=== PATIENT | male | born 1960 | race Caucasian/White ===

== ENCOUNTER 2016-08-01 09:18 | Outpatient (CLI) | payer MEDICARE | END 2016-08-01 09:19 | disposition home or self-care (01) | DX: E03.9 Hypothyroidism, unspecified (principal); R93.8 Abnormal findings on diagnostic imaging of other specified body structures ==

== ENCOUNTER 2016-08-02 10:36 | Outpatient (CLI) | payer MEDICARE | END 2016-08-02 10:37 | disposition home or self-care (01) | DX: R73.01 Impaired fasting glucose (principal) ==

== ENCOUNTER 2016-10-31 08:27 | Outpatient (CLI) | payer MEDICARE | END 2016-10-31 08:28 | disposition home or self-care (01) | DX: D72.829 Elevated white blood cell count, unspecified (principal); E03.9 Hypothyroidism, unspecified; R73.01 Impaired fasting glucose ==

== ENCOUNTER 2017-02-05 08:04 | Outpatient (CLI) | payer MEDICARE ==
--- NOTE | 2017-02-05 17:19 | Ultrasound Report ---
THYROID ULTRASOUND: 02/05/2017 CLINICAL INDICATION: Hypothyroidism. COMPARISON: 08/01/2016 TECHNIQUE: Real-time scanning was performed with uniforms sales representative static images obtained. The right lobe measures 5.1 x 2.4 x 2.4 cm, and the left lobe measures 5.8 x 2.1 x 2.1 cm. The isthm us measures 6 mm. Both lobes demonstrate diffuse heterogeneity of echotexture. In the central porti on of the right lobe, a 1.3 x 0.5 x 0.6 cm hyperechoic avascular nodule is again noted. No discrete nodule is seen in the left lobe. IMPRESSION: STABLE HYPERECHOIC NODULE IN THE RIGHT LOBE OF THE THYROID. NO NEW NODULE IS SEEN. JOB #: [id number] EXT JOB #:[id number]
== END 2017-02-05 08:05 | disposition home or self-care (01) ==
LOC: DI 08:04
PROVIDERS: ATTEND Nurse Practitioner Family
DX: E04.1 Nontoxic single thyroid nodule (principal); E03.9 Hypothyroidism, unspecified
CPT/HCPCS: 76536

== ENCOUNTER 2017-12-24 09:06 | Outpatient (CLI) | payer MEDICARE ==
[2017-12-24 09:38] LABS: BASOPHILS # (AUTO) 0.1 10^3/uL (0.0-0.1); BASOPHILS % (AUTO) 1.2 %; EOSINOPHILS # (AUTO) 0.2 10^3/uL (0.0-0.7); EOSINOPHILS % (AUTO) 2.1 %; HGB - HEMOGLOBIN 17.2 g/dL (14.0-18.0); LYMPHOCYTES # (AUTO) 2.4 10^3/uL (1.5-3.5); LYMPHOCYTES % (AUTO) 26.2 %; MEAN CORPUSCULAR HEMOGLOBIN 32.1 pg (27.0-31.0); MEAN CORPUSCULAR HGB CONC 34.3 g/dL (32.0-36.0); MEAN CORPUSCULAR VOLUME 93.5 fL (80.0-94.0); MEAN PLATELET VOLUME 7.2 fL (7.4-11.4); MONOCYTES # (AUTO) 0.8 10^3/uL (0.0-1.0); MONOCYTES % (AUTO) 8.3 %; NEUTROPHILS # (AUTO) 5.7 10^3/uL (1.5-6.6); NEUTROPHILS % (AUTO) 62.2 %; PLT - PLATELET COUNT 282 10^3/uL (130-450); RED BLOOD COUNT 5.38 10^6/uL (4.70-6.10); RED CELL DISTRIBUTION WIDTH 12.6 % (12.0-15.0); WHITE BLOOD COUNT 9.1 x10^3/uL (4.8-10.8)
[2017-12-24 09:56] LABS: ALBUMIN/GLOBULIN RATIO 1.1 (1.0-2.2); ALKALINE PHOSPHATASE 83 IU/L (42-121); ALT ALANINE AMINOTRANSFERASE 28 IU/L (10-60); AST ASPARTATE AMINOTRANSFERASE 22 IU/L (10-42); BUN - BLOOD UREA NITROGEN 10 mg/dL (6-20); CALCIUM 8.9 mg/dL (8.5-10.3); CARBON DIOXIDE - CO2 26 mmol/L (21-32); CHLORIDE 100 mmol/L (101-111); CHOL/HDL RATIO 4.8 (<5.0); CHOLESTEROL 135 mg/dL; CREATININE 1.1 mg/dL (0.6-1.2); GFR - MDRD 69 (>89); GLUCOSE 111 mg/dL (70-100); HDL CHOLESTEROL 28 mg/dL; LDL CHOLESTEROL,CALCULATED 84 mg/dL; SODIUM 134 mmol/L (135-145); TOTAL PROTEIN 7.6 g/dL (6.7-8.2); VLDL CHOLESTEROL 23 mg/dL
== END 2017-12-24 09:07 | disposition home or self-care (01) ==
LOC: LAB 09:06
PROVIDERS: ATTEND Nurse Practitioner Family
DX: E03.9 Hypothyroidism, unspecified (principal); R03.0 Elevated blood-pressure reading, without diagnosis of hypertension; Z12.5 Encounter for screening for malignant neoplasm of prostate
CPT/HCPCS: 36415; 80053; 80061; 84443; 85025; G0103; 83721; 84153

== ENCOUNTER 2018-04-17 09:38 | Outpatient (CLI) | payer MEDICARE ==
[2018-04-17 20:18] LABS: THYROID STIMULATING HORMONE 60.5 uIU/mL (0.34-5.60)
[2018-04-17 21:39] LABS: FREE T4 (FREE THYROXINE) 0.28 ng/dL (0.58-1.64)
== END 2018-04-17 09:39 | disposition home or self-care (01) ==
LOC: LAB.F 09:38
PROVIDERS: ATTEND Nurse Practitioner
DX: E03.9 Hypothyroidism, unspecified (principal)
CPT/HCPCS: 36415; 84439; 84443

== ENCOUNTER 2019-04-22 07:03 | Outpatient (CLI) | payer MEDICARE ==
[2019-04-22 08:31] LABS: ALBUMIN/GLOBULIN RATIO 1.1 (1.0-2.2); BILIRUBIN,TOTAL 0.9 mg/dL (0.2-1.0); CALCIUM 9.1 mg/dL (8.5-10.3); CREATININE 1.1 mg/dL (0.6-1.2); TOTAL PROTEIN 7.6 g/dL (6.7-8.2)
[2019-04-22 08:37] LABS: BASOPHILS # (AUTO) 0.1 10^3/uL (0.0-0.1); BASOPHILS % (AUTO) 0.6 %; EOSINOPHILS # (AUTO) 0.3 10^3/uL (0.0-0.7); HGB - HEMOGLOBIN 17.4 g/dL (14.0-18.0); LYMPHOCYTES # (AUTO) 1.7 10^3/uL (1.5-3.5); MEAN CORPUSCULAR HEMOGLOBIN 32.1 pg (27.0-31.0); MEAN CORPUSCULAR HGB CONC 34.3 g/dL (32.0-36.0); MEAN CORPUSCULAR VOLUME 93.5 fL (80.0-94.0); MEAN PLATELET VOLUME 8.8 fL (7.4-11.4); MONOCYTES # (AUTO) 0.8 10^3/uL (0.0-1.0); MONOCYTES % (AUTO) 7.6 %; NEUTROPHILS # (AUTO) 7.8 10^3/uL (1.5-6.6); NEUTROPHILS % (AUTO) 72.2 %; PLT - PLATELET COUNT 315 10^3/uL (130-450); RED BLOOD COUNT 5.42 10^6/uL (4.70-6.10); RED CELL DISTRIBUTION WIDTH 12.6 % (12.0-15.0); WHITE BLOOD COUNT 10.8 x10^3/uL (4.8-10.8)
[2019-04-22 09:01] LABS: HEMOGLOBIN A1C 0.72 g/dL; HEMOGLOBIN A1C % 5.8 % (4.6-6.2)
--- NOTE | 2019-04-23 05:55 | XRAY Report ---
Reason: FAM HX OF AAA, COUGH Procedure Date: 04/22/2019 Accession Number: [id number] / [id number] Procedure: XR - Chest 2 View X-Ray CPT Code: 67224 FULL RESULT: EXAM: CHEST RADIOGRAPHY EXAM DATE: 04/22/2019 07:21 AM. CLINICAL HISTORY: FAM HX OF AAA, COUGH. COMPARISON: 08/25/2011 11:10 PM. TECHNIQUE: 2 views. FINDINGS: Lungs/Pleura: Lungs are mildly hyperinflated. No focal opacities. No pneumothorax or effusions. Mediastinum: Heart and mediastinal contours are unremarkable. Other: Right ventriculostomy catheter overlies the chest, incompletely imaged. Single punctate metallic foreign body is noted in the right upper chest. IMPRESSION: 1. No acute pulmonary process. 2. COPD. 3. Radiopaque foreign body in the right upper chest is unchanged. RADIA
--- NOTE | 2019-04-23 08:43 | Ultrasound Report ---
Reason: FAM HX OF AAA, COUGH Procedure Date: 04/22/2019 Accession Number: [id number] / [id number] Procedure: US - Aorta Screening CPT Code: FULL RESULT: EXAM: AORTIC DOPPLER ULTRASOUND EXAM DATE: 04/22/2019 07:46 AM CLINICAL HISTORY: Family history of AAA, cough. COMPARISON: None. TECHNIQUE: Real-time sonographic imaging of retroperitoneal vascular structures, including color-flow, Doppler flow and spectral analysis was performed by the railroad baggage porter. Multiple technical support representative static images were saved for review. FINDINGS: Aorta: The abdominal aorta was adequately visualized. No evidence for abdominal aortic aneurysm. Atheromatous plaques are noted. Aorta: Proximal: Sagittal AP 2.6 cm. Mid: Transverse 2.0 x 2.1 cm. Distal: Transverse 1.7 x 2.0 cm. Caliber: WNL: Yes. Plaque visualized: Yes. Iliacs: Right Iliac: Transverse 1.0 x 1.1 cm. Left Iliac: Transverse 1.1 x 1.2 cm. Iliac Vessels: The visualized proximal common iliac arteries are normal in caliber. Other: None. IMPRESSION: No abdominal aortic aneurysm. RADIA
== END 2019-04-22 07:04 | disposition home or self-care (01) ==
LOC: DI 07:03
PROVIDERS: ATTEND Physician Assistant Medical
DX: Z13.6 Encounter for screening for cardiovascular disorders (principal); J44.9 Chronic obstructive pulmonary disease, unspecified; Z82.49 Family history of ischemic heart disease and other diseases of the circulatory system; R05 Cough; R73.01 Impaired fasting glucose; Z12.5 Encounter for screening for malignant neoplasm of prostate; E03.9 Hypothyroidism, unspecified; R03.0 Elevated blood-pressure reading, without diagnosis of hypertension; M79.5 Residual foreign body in soft tissue; F17.200 Nicotine dependence, unspecified, uncomplicated
CPT/HCPCS: 36415; 71046; 76706; 83036; G0103; 80053; 84153; 84443; 85025

== ENCOUNTER 2020-12-14 08:52 | Outpatient (CLI) | payer MEDICARE ==
[2020-12-14 09:18] LABS: BASOPHILS % (AUTO) 0.3 %; EOSINOPHILS # (AUTO) 0.2 10^3/uL (0.0-0.7); EOSINOPHILS % (AUTO) 2.5 %; HGB - HEMOGLOBIN 17.4 g/dL (14.0-18.0); LYMPHOCYTES # (AUTO) 1.8 10^3/uL (1.5-3.5); LYMPHOCYTES % (AUTO) 19.8 %; MEAN CORPUSCULAR HEMOGLOBIN 31.4 pg (27.0-31.0); MEAN CORPUSCULAR HGB CONC 33.5 g/dL (32.0-36.0); MEAN CORPUSCULAR VOLUME 93.9 fL (80.0-94.0); MEAN PLATELET VOLUME 8.5 fL (7.4-11.4); MONOCYTES # (AUTO) 0.7 10^3/uL (0.0-1.0); NEUTROPHILS # (AUTO) 6.3 10^3/uL (1.5-6.6); PLT - PLATELET COUNT 306 10^3/uL (130-450); RED BLOOD COUNT 5.54 10^6/uL (4.70-6.10); RED CELL DISTRIBUTION WIDTH 12.3 % (12.0-15.0); WHITE BLOOD COUNT 9.1 x10^3/uL (4.8-10.8)
[2020-12-14 09:36] LABS: ALBUMIN 4.3 g/dL (3.2-5.5); ALBUMIN/GLOBULIN RATIO 1.1 (1.0-2.2); ALKALINE PHOSPHATASE 93 IU/L (42-121); ALT ALANINE AMINOTRANSFERASE 25 IU/L (10-60); AST ASPARTATE AMINOTRANSFERASE 16 IU/L (10-42); BILIRUBIN,TOTAL 0.7 mg/dL (0.2-1.0); BUN - BLOOD UREA NITROGEN 13 mg/dL (6-20); CARBON DIOXIDE - CO2 27 mmol/L (21-32); CHLORIDE 100 mmol/L (101-111); CHOL/HDL RATIO 5.2 (<5.0); CHOLESTEROL 161 mg/dL; CREATININE 1.1 mg/dL (0.6-1.2); GFR - MDRD 68 (>89); GLUCOSE 112 mg/dL (70-100); HDL CHOLESTEROL 31 mg/dL; LDL CHOLESTEROL,CALCULATED 110 mg/dL; LDL/HDL RATIO 3.5 (<3.6); POTASSIUM 4.4 mmol/L (3.5-5.0); SODIUM 135 mmol/L (135-145); TOTAL PROTEIN 8.2 g/dL (6.7-8.2); TRIGLYCERIDES 102 mg/dL; VLDL CHOLESTEROL 20 mg/dL
[2020-12-14 09:47] LABS: THYROID STIMULATING HORMONE 3.62 uIU/mL (0.34-5.60)
== END 2020-12-14 08:53 | disposition home or self-care (01) ==
LOC: LAB 08:52
PROVIDERS: ATTEND Internal Medicine
DX: R03.0 Elevated blood-pressure reading, without diagnosis of hypertension (principal); Z12.5 Encounter for screening for malignant neoplasm of prostate; E03.9 Hypothyroidism, unspecified
CPT/HCPCS: 36415; 80053; 80061; 84443; 85025; G0103; 83721; 84153

== ENCOUNTER 2021-07-16 10:29 | Outpatient (CLI) | payer MEDICARE ==
[2021-07-16 11:07] LABS: BASOPHILS # (AUTO) 0.1 10^3/uL (0.0-0.1); BASOPHILS % (AUTO) 0.6 %; EOSINOPHILS # (AUTO) 0.2 10^3/uL (0.0-0.7); EOSINOPHILS % (AUTO) 1.8 %; HCT - HEMATOCRIT 50.3 % (42.0-52.0); LYMPHOCYTES # (AUTO) 1.8 10^3/uL (1.5-3.5); LYMPHOCYTES % (AUTO) 20.1 %; MEAN CORPUSCULAR HEMOGLOBIN 31.8 pg (27.0-31.0); MEAN CORPUSCULAR HGB CONC 33.8 g/dL (32.0-36.0); MEAN PLATELET VOLUME 8.4 fL (7.4-11.4); MONOCYTES # (AUTO) 0.7 10^3/uL (0.0-1.0); MONOCYTES % (AUTO) 7.4 %; NEUTROPHILS # (AUTO) 6.1 10^3/uL (1.5-6.6); NEUTROPHILS % (AUTO) 69.4 %; PLT - PLATELET COUNT 288 10^3/uL (130-450); RED BLOOD COUNT 5.35 10^6/uL (4.70-6.10); RED CELL DISTRIBUTION WIDTH 12.6 % (12.0-15.0); WHITE BLOOD COUNT 8.8 x10^3/uL (4.8-10.8)
[2021-07-16 11:28] LABS: ALBUMIN 4.1 g/dL (3.2-5.5); ALBUMIN/GLOBULIN RATIO 1.1 (1.0-2.2); ALKALINE PHOSPHATASE 83 IU/L (42-121); ALT ALANINE AMINOTRANSFERASE 29 IU/L (10-60); AST ASPARTATE AMINOTRANSFERASE 18 IU/L (10-42); BILIRUBIN,TOTAL 0.7 mg/dL (0.2-1.0); BUN - BLOOD UREA NITROGEN 12 mg/dL (6-20); CALCIUM 9.1 mg/dL (8.5-10.3); CARBON DIOXIDE - CO2 27 mmol/L (21-32); CHLORIDE 95 mmol/L (101-111); CHOL/HDL RATIO 4.4 (<5.0); CHOLESTEROL 169 mg/dL; CREATININE 1.1 mg/dL (0.6-1.2); GFR - MDRD 68 (>89); GLUCOSE 107 mg/dL (70-100); HDL CHOLESTEROL 38 mg/dL; LDL CHOLESTEROL,CALCULATED 116 mg/dL; LDL/HDL RATIO 3.1 (<3.6); POTASSIUM 4.5 mmol/L (3.5-5.0); SODIUM 131 mmol/L (135-145); TOTAL PROTEIN 7.7 g/dL (6.7-8.2); TRIGLYCERIDES 77 mg/dL; VLDL CHOLESTEROL 15 mg/dL
[2021-07-16 11:39] LABS: THYROID STIMULATING HORMONE 22.82 uIU/mL (0.34-5.60)
[2021-07-16 15:52] LABS: FREE T4 (FREE THYROXINE) 0.46 ng/dL (0.58-1.64)
== END 2021-07-16 10:30 | disposition home or self-care (01) ==
LOC: LAB 10:29
PROVIDERS: ATTEND Internal Medicine
DX: R03.0 Elevated blood-pressure reading, without diagnosis of hypertension (principal); E78.5 Hyperlipidemia, unspecified; E03.9 Hypothyroidism, unspecified
CPT/HCPCS: 36415; 80053; 80061; 83721; 84439; 84443; 85025

== ENCOUNTER 2021-11-05 08:00 | Outpatient (CLI) | payer MEDICARE ==
[2021-11-05 10:14] LABS: THYROID STIMULATING HORMONE 1.38 uIU/mL (0.34-5.60)
== END 2021-11-05 23:59 | disposition home or self-care (01) ==
LOC: LAB 08:00
PROVIDERS: ATTEND Internal Medicine
DX: E03.9 Hypothyroidism, unspecified (principal)
CPT/HCPCS: 36415; 84443

== ENCOUNTER 2022-05-09 15:21 | Emergency (ER) | payer MEDICARE ==
--- NOTE | 2022-05-09 16:04 | ED Physician Documentation ---
PD HPI LOWER EXT INJURY - Stated complaint Stated Complaint: LEFT LEG INJ - Chief complaint Chief Complaint: Ext Problem - History obtained from History obtained from: Patient, Family - Additional information Additional information: 61-year-old retired gentleman with history of brain aneurysm was walking in his house backwards today and tripped over his 's dog. He rolled his left ankle and has moderate pain there but declines pain medication. No other injuries. Review of Systems Constitutional: reports: Reviewed and negative Cardiac: reports: Reviewed and negative Respiratory: reports: Reviewed and negative PD PAST MEDICAL HISTORY - Present Medications Home Medications: Ambulatory Orders Medication Instructions Recorded Confirmed Bupropion HCl [Wellbutrin Xl] 300 mg PO DAILY 05/09/22 05/09/22 HYDROcod/ACETAM 5/325 [[place] 5/325] 1 - 2 tab PO Q6H PRN #15 tablet 05/09/22 Knee Scooter 1 unit TD ONCE #1 05/09/22 Levothyroxine [Synthroid] 200 mcg PO QDAC 05/09/22 05/09/22 Metoprolol Tartrate [Lopressor] 50 mg PO DAILY 05/09/22 05/09/22 - Allergies Allergies/Adverse Reactions: Allergies Allergy/AdvReac Type Severity Reaction Status Date / Time Iodinated Contrast Media Allergy Hives Verified 05/09/22 15:29 PD ED PE NORMAL - Vitals Vital signs reviewed: Yes - General General: Alert and oriented X 3, No acute distress - Neck Neck: Supple, no meningeal sign, No bony TTP - Extremities Extremities: Other (Quite tender over both malleoli of the left ankle without proximal fibular or foot tenderness. Normal cap refill in the foot.) - Neuro Neuro: Alert and oriented X 3, Normal speech Results - Vitals Vitals: Vital Signs - 24 hr 05/09/22 15:27 Temperature 36.4 C L Heart Rate 95 Respiratory 16 Rate Blood Pressure 161/89 H O2 Saturation 98 Oxygen O2 Source Room air - Rads (name of study) He has a oblique fracture running through the distal fibula above the level of the ankle mortise with widening of the medial malleolus Radiology: EMP read contemporaneously Procedures - Splint (location) LLE Splint applied by: Tech Type of splint: Fiberglass, Short leg, Posterior, Stirrup Other: Patient tolerated well, No complications, Neurovascular intact, Crutches provided Departure - Departure Disposition: 01 Home, Self Care Clinical Impression: Closed left ankle fracture Qualifiers: Encounter type: initial encounter Qualified Code(s): S82.892A - Other fracture of left lower leg, initial encounter for closed fracture Condition: Good Record reviewed to determine appropriate education?: Yes Instructions: ED Fx Ankle Lateral Malleolus Follow-Up: Orthopedic Care [Provider Group] Prescriptions: Knee Scooter 1 unit TD ONCE #1 HYDROcod/ACETAM 5/325 [[place] 5/325] 1 - 2 tab PO Q6H PRN #15 tablet PRN Reason: Pain Comments: Follow-up with the orthopedic surgeon within the week, call today or tomorrow for an appointment. It is a decent chance that they will feel you will need surgery given the possible unstable nature of this fracture. Return for new or worsening symptoms. Tylenol and/or ibuprofen as needed for pain. Keep it elevated. Do not walk on it. Do not remove the splint or get it wet. I am prescribing a short course of narcotic pain medication for you. These are potentially dangerous and addictive medications that should be used carefully. These medications may constipate you. Take an wvqp-ldb-klvjmcg stool softener (docusate) twice daily with plenty of water while taking these medications. If you go 24 hours without a bowel movement, take artj-ntg-fohphfz miralax, per package instructions. Do not drink or drive while taking these medications. If you received narcotic or sedating medications while in the emergency department, do not drive for 24 hours. Store this medication in a safe, secure place and out of reach of children. It is a violation of federal law to give or sell this medication to another person or to use in a manner other than prescribed. The ED will not refill narcotic prescriptions, including prescriptions lost or stolen. To dispose of unwanted medications: 1. [facility] at [address] in [place] has a medication drop box. They accept prescription medications (in pill form) Friday through Friday 9:00 a.m. to 5:00 p.m. 2. The [facility] [employer] accepts prescription medications (in pill form only) for disposal year round. Call for more information. 3. Contact the [facility] for the next [facility] sponsored prescription drug collection event. , [phone], or [phone]; Note that many narcotic pain relievers also contain Tylenol/acetaminophen. Please ensure that your total dose of acetaminophen from all sources does not exceed 3 g (3000 mg) per day.
--- NOTE | 2022-05-09 16:23 | XRAY Report ---
PROCEDURE: Ankle 3 View LT INDICATIONS: Trauma TECHNIQUE: 3 views of the ankle were acquired. COMPARISON: None FINDINGS: Bones: There is a displaced distal fibular metadiaphyseal fracture. There is widening of the medial a spect of the mortise joint up to 1 cm in diameter. No other fracture or dislocation. Soft tissues: No tibiotalar joint effusion. Achilles tendon appears normal. IMPRESSION: Distal fibular fracture and disruption of the tibial fibular syndesmosis with widening o f the mortise joint. Reviewed by: Leeann Robles MD on 05/09/2022 4:21 PM PDT Approved by: Leeann Robles MD on 05/09/2022 4:21 PM PDT Station ID: [id number]
[2022-05-09] MEDS ORDERED: HYDROcod/ACETAM 5/325 MG TABLET PO STA (16:39)
[2022-05-09 16:49] VITALS: BP 158/78
== END 2022-05-09 16:49 | disposition home or self-care (01) ==
LOC: ED 15:21
DX: S82.832A Other fracture of upper and lower end of left fibula, initial encounter for closed fracture (principal); W01.0XXA Fall on same level from slipping, tripping and stumbling without subsequent striking against object, initial encounter; Y93.01 Activity, walking, marching and hiking; Y92.009 Unspecified place in unspecified non-institutional (private) residence as the place of occurrence of the external cause; R00.0 Tachycardia, unspecified
CPT/HCPCS: 29515; 73610; 99283; A9270

== ENCOUNTER 2022-05-15 08:58 | Day surgery (SDC) | payer MEDICARE ==
[2022-05-15] MEDS ORDERED: CEFAZOLIN 2G/50ML 0.9% NS 2 GM/50 ML BAG IV ONE (09:06)
[2022-05-15] MEDS ORDERED: CELECOXIB 100 MG CAPSULE PO ONE (09:06)
[2022-05-15] MEDS ORDERED: ACETAMINOPHEN 500 MG TABLET PO ONE (09:06)
[2022-05-15] MEDS ORDERED: VANCOMYCIN 1 GM VIAL ONE (09:18)
[2022-05-15] MEDS ORDERED: LIDOCAINE MPF 2%-EPI 1:200000 20 ML VIAL ONE (09:18)
[2022-05-15] MEDS ORDERED: BUPIVACAINE 0.5% PF 30 ML VIAL ONE (09:18)
[2022-05-15] MEDS ORDERED: PROPOFOL 200 MG/20 ML VIAL IVP ONE ×2 (09:33→11:20)
[2022-05-15] MEDS ORDERED: ROPIVACAINE 0.5% PF 20 ML VIAL ONE (09:33)
[2022-05-15] MEDS ORDERED: DEXAMETHASONE 4 MG/ML VIAL ONE (09:33)
[2022-05-15] MEDS ORDERED: ONDANSETRON 4 MG/2 ML VIAL ONE (09:33)
[2022-05-15] MEDS ORDERED: MIDAZOLAM 2 MG/2 ML VIAL ONE (09:34)
[2022-05-15] MEDS ORDERED: fentaNYL 100 MCG/2 ML VIAL ONE (09:34)
[2022-05-15] MEDS ORDERED: LACTATED RINGERS 1,000 ML IV ONE ×2 (09:43→11:41)
--- NOTE | 2022-05-15 10:11 | ANESTHESIA ---
Pre-Anesthesia VS, & Labs - Diagnosis left fibula fracture - Procedure ORIF left fibula fracture Vital Signs: Temp Pulse Resp BP Pulse Ox O2 Flow Rate 36.7 C 98 21 162/99 H 96 05/15/22 09:22 05/15/22 09:22 05/15/22 09:22 05/15/22 09:22 05/15/22 09:22 Height: 6 ft 1 in Weight (kg): 96 kg Body Mass Index: 27.9 BMI Classification: Overweight - NPO >8 hours Home Medications and Allergies Bupropion HCl [Wellbutrin Xl] 300 mg PO DAILY 05/09/22 Levothyroxine [Synthroid] 200 mcg PO QDAC 05/09/22 Metoprolol Tartrate [Lopressor] 50 mg PO DAILY 05/09/22 Allergies/Adverse Reactions: Allergies Allergy/AdvReac Type Severity Reaction Status Date / Time Iodinated Contrast Media Allergy Hives Verified 05/15/22 06:54 Anes History & Medical History - Anesthetic History Anesthesia Complications: reports: No previous complications - Medical History Cardiovascular: reports: Hypertension, High cholesterol Pulmonary: reports: Other (snores) Gastrointestinal: reports: None Urinary: reports: None Neuro: reports: Other (intracerbral hemorrhage/anneurysm) Musculoskeletal: reports: Chronic back pain Endocrine/Autoimmune: reports: HyPOthyroidism Blood Disorders: reports: None Skin: reports: None Smoking Status: Current every day smoker (one pack per day) Psychosocial: reports: Depression, Anxiety, Alcohol (daily use, 4 beers per day) - Surgical History Neurologic: reports: Other (aneurysm clipping) Exam General: Alert, Oriented x3, Cooperative, No acute distress Dental: Dentures full Upper, Dentures full Lower Mouth Openin Fingerbreadth Neck Mobility: Normal Mallampati classification: III Thyromental Distance: 4-6 cm Respiratory: Wheezing Cardiovascular: Regular rate, Normal S1, Normal S2, No murmurs Mental/Cognitive Status: Alert/Oriented X3, Normal for patient Plan Anesthesia Type: General, Sciatic Nerve Block (Left) Regional Block: Per Surgeon's request for Post Op pain control Consent for Procedure(s) Verified and Reviewed: Yes Code Status: Attempt Resuscitation ASA classification: 2-Mild systemic disease Is this case an emergency?: No
[2022-05-15] MEDS ORDERED: ATROPINE ABBOJECT 1 MG/10 ML SYRINGE IVP PRN (10:13)
[2022-05-15] MEDS ORDERED: HYDROmorphone 0.5 MG/0.5 ML SYRINGE IVP PRN (10:13)
[2022-05-15] MEDS ORDERED: MORPHINE 2 MG/ML CARPUJECT IVP PRN (10:13)
[2022-05-15] MEDS ORDERED: ONDANSETRON 4 MG/2 ML VIAL IVP PRN (10:13)
[2022-05-15] MEDS ORDERED: NALOXONE 0.4 MG/ML VIAL IVP PRN (10:13)
[2022-05-15] MEDS ORDERED: fentaNYL 100 MCG/2 ML VIAL IVP PRN (10:13)
[2022-05-15] MEDS ORDERED: LACTATED RINGERS 1,000 ML IV SCH (11:00)
[2022-05-15] MEDS ORDERED: oxyCODONE 5 MG TABLET PO PRN (11:44)
[2022-05-15] MEDS ORDERED: ACETAMINOPHEN 500 MG TABLET PO PRN (11:44)
[2022-05-15] MEDS ORDERED: CELECOXIB 100 MG CAPSULE PO PRN (11:44)
--- NOTE | 2022-05-15 11:50 | OPERATIVE REPORT ---
Operative Report - General Procedure Date: 05/15/22 Planned Procedure: Open reduction internal fixation left ankle fracture, Possible repair deltoid ligament left ankle Pre-Op Diagnosis: Displaced lateral malleolus fracture, closed, left ankle with deltoid ligam Procedure Performed: Open reduction internal fixation lateral malleolus left ankle with Holley [employer] Nephew 3.5 mm x 110 mm intramedullary cortical screw Post Op Diagnosis: Same as preoperative diagnosis - Procedure Note Primary Surgeon: Jourdan Degroot MD Secondary Surgeon: Valarie KOHLER Anesthesia Provider: Madelyn Parra CRNA Anesthesia Technique: Moderate sedation, Regional block Estimated Blood Loss (mL): 3 Indications: This is a 61-year-old gentleman who tripped over his small dog at home last week and was seen in the emergency room for left ankle injury. He had x-rays taken and was placed in a sugar-tong splint. He was seen yesterday in the orthopedic clinic for his first evaluation. This is an isolated injury to his left ankle. He denies chest pain, shortness of breath, loss of consciousness, syncope or dizziness associated with the fall. He is a known cigarette smoker, 47-yngv-lsro history and a regular user of alcohol. He averages 3-4 beers per day. His exam showed swelling and tenderness about his left ankle; tenderness medial and lateral with ecchymosis. There is no fracture blisters or sign of compartment syndrome. He has thin skin, absent hair distribution to foot, pedal pulses present but reduced. His foot had good warmth, no acute vascular compromise present to left foot. His x-rays showed a isolated lateral malleolus fracture that begins at the joint line and extending proximally, Allen B fracture with a widened medial clear space indicating deltoid ligament injury. This is a bimalleolar equivalent fracture of the left ankleAnd informed consent was obtained in the office for open reduction internal fixation left ankle with possible deltoid ligament repair Findings: There was a Allen B fracture of the lateral malleolus left ankle, widening medial clear space suggestive of deltoid ligament sprain left ankle as well. The medial malleolus and posterior malleolus was intact as well as the tibial plafond. Complications: None - Other Other Information/Narrative: The patient was brought to the operating room and placed in the supine position. He had received a popliteal block and also a LMA was inserted for sedation. The pneumatic tourniquet was applied to the proximal left thigh over cast padding and secured. A foam bolster was placed beneath the left leg as well as a hip bump to internally rotate left leg. A C-arm image intensifier was utilized and covered with sterile drape. A timeout procedure was performed by the entire operating room team and all were in agreement. The goal of the surgery was to stabilize the left ankle in a minimally invasive way to minimize wound healing complications which are the most serious and frequent complications in patients with peripheral vascular disease. His 45- year cigarette smoking history and his regular use of alcohol are significant comorbidities to increase his complication rate associated with fracture treatment. The tourniquet was not utilized but was available. The bony landmarks of the ankle were outlined with a sterile marking pen. A 1 cm incision was placed infe rior to the tip of the lateral malleolus. Using a drill guide and cannulated guidewire, with help of the C arm image intensifier, guidepin was directed from tip of lateral malleolus down the medullary canal and across the fracture site. The medullary position of the guidewire was confirmed on AP and lateral images. With the guidewire in place, a 2.7 mm cannulated drill was used to make a dispatcher ship pilot hole in the lateral malleolus. The longest available 3.5 mm cortical screw was 110 mm; this solid cortical screw was inserted after the K wire had been removed and the reduction held with a small pointed bone clamp that had been placed percutaneously Through 2 small stab incisions. The 3.5 mm cortical screw was advanced carefully using the C arm image intensifier for visualization. The cortical screw was fully seated at the tip of the lateral malleolus and the screw tip extended well beyond the fracture site. The ankle mortise was then stressed with external rotation and there was mild opening of the medial clear space. Otherwise, the ankle mortise was intact without stress. Because of his history, it was elected to avoid placing additional incision about the deltoid ligament. A fibular della was not available from [employer] today and this is the reason that I chose the intramedullary screw which seem to stabilize the fracture well. The lateral malleolar incision was closed with two 4 nylon simple sutures. Xeroform, gauze, cast padding and a fiberglass sugar-tong splint was applied to the left leg, short leg. He received 2 g of Ancef intravenously and tolerated the procedure well. A physician histology assistant was medically necessary to help with prepping and draping, positioning, protection of vital structures, assistance during the procedure including wound closure, dressing and/or splinting.
--- NOTE | 2022-05-15 12:23 | ANESTHESIA POST OP EVALUATION ---
Anesthesia Post Eval - Post Anesthesia Eval Vitals: Last Vital Signs Temp 37.2 C 05/15/22 12:07 Pulse 78 05/15/22 12:07 Resp 16 05/15/22 12:07 BP 128/85 H 05/15/22 12:07 Pulse Ox 94 05/15/22 12:07 O2 Flow Rate CV Function Including HR & BP: Stable Pain Control: Satisfactory Nausea & Vomiting: Negative Mental Status: Baseline Respiratory Status: Airway Patent Hydration Status: Satisfactory Anesthesia Complications: None
[2022-05-15 13:25] VITALS: BP 130/82
--- NOTE | 2022-05-15 13:29 | XRAY Report ---
PROCEDURE: OR C-Arm Procedure INDICATIONS: ORIF LEFT PROCEDURE TECHNIQUE: 3 fluoroscopic spot films were obtained intraoperatively COMPARISON: None. FINDINGS: Low-resolution intraoperative fluoroscopic spot films show orthopedic screw traversing the distal obl ique fibular fracture. IMPRESSION: Fluoroscopic guidance Reviewed by: Franklin Edward MD on 05/15/2022 12:28 PM AKDT Approved by: Franklin Edward MD on 05/15/2022 12:28 PM AKDT Station ID: [id number]
== END 2022-05-15 08:59 | disposition home or self-care (01) ==
LOC: SDS 08:58
PROVIDERS: ATTEND Orthopaedic Surgery
DX: S82.62XA Displaced fracture of lateral malleolus of left fibula, initial encounter for closed fracture (principal); S93.422A Sprain of deltoid ligament of left ankle, initial encounter; F17.210 Nicotine dependence, cigarettes, uncomplicated; I10 Essential (primary) hypertension; F41.8 Other specified anxiety disorders
CPT/HCPCS: 27792; A9270; J0690; J2795; J7120

== ENCOUNTER 2022-07-09 13:59 | Outpatient (CLI) | payer MEDICARE ==
--- NOTE | 2022-07-09 14:28 | XRAY Report ---
PROCEDURE: Ankle 3 View LT INDICATIONS: LEFT ANKLE ORIF TECHNIQUE: 3 views of the ankle were acquired. COMPARISON: 05/09/2022 FINDINGS: Bones: ORIF of the distal fibula has been performed, as before. Curvilinear high density focus at the posterior aspect of the posterior malleolus is present, new since the prior examination. Ankle morti se is normally aligned. No suspicious bony lesions. Soft tissues: No tibiotalar joint effusion. Achilles tendon appears normal. IMPRESSION: 1. Postsurgical sequelae. 2. Curvilinear high density at the posterior aspect of the posterior malleolus, which could represent a fracture fragment or heterotopic ossification. Reviewed by: Krys Aguilar MD on 07/09/2022 1:26 PM [place] Approved by: Krys Aguilar MD on 07/09/2022 1:26 PM [facility] Station ID: [id number]
== END 2022-07-09 14:00 | disposition home or self-care (01) ==
LOC: DI.WOS 13:59
PROVIDERS: ATTEND Orthopaedic Surgery
DX: S82.62XA Displaced fracture of lateral malleolus of left fibula, initial encounter for closed fracture (principal)

== ENCOUNTER 2022-10-11 11:42 | Outpatient (CLI) | payer MEDICARE ==
[2022-10-11 11:55] LABS: BASOPHILS % (AUTO) 0.4 %; EOSINOPHILS # (AUTO) 0.5 10^3/uL (0.0-0.7); HCT - HEMATOCRIT 48.2 % (42.0-52.0); HGB - HEMOGLOBIN 15.9 g/dL (14.0-18.0); LYMPHOCYTES # (AUTO) 2.3 10^3/uL (1.5-3.5); LYMPHOCYTES % (AUTO) 22.7 %; MEAN CORPUSCULAR HEMOGLOBIN 32.2 pg (27.0-31.0); MEAN CORPUSCULAR VOLUME 97.6 fL (80.0-94.0); MEAN PLATELET VOLUME 8.6 fL (7.4-11.4); MONOCYTES # (AUTO) 0.8 10^3/uL (0.0-1.0); MONOCYTES % (AUTO) 7.7 %; NEUTROPHILS # (AUTO) 6.4 10^3/uL (1.5-6.6); NEUTROPHILS % (AUTO) 63.6 %; PLT - PLATELET COUNT 290 10^3/uL (130-450); RED BLOOD COUNT 4.94 10^6/uL (4.70-6.10)
[2022-10-11 12:17] LABS: ALBUMIN 3.9 g/dL (3.2-5.5); ALBUMIN/GLOBULIN RATIO 1.1 (1.0-2.2); ALKALINE PHOSPHATASE 71 IU/L (42-121); ALT ALANINE AMINOTRANSFERASE 26 IU/L (10-60); AST ASPARTATE AMINOTRANSFERASE 16 IU/L (10-42); BILIRUBIN,TOTAL 0.3 mg/dL (0.2-1.0); BUN - BLOOD UREA NITROGEN 11 mg/dL (6-20); CALCIUM 8.7 mg/dL (8.5-10.3); CARBON DIOXIDE - CO2 27 mmol/L (21-32); CHLORIDE 102 mmol/L (101-111); CHOL/HDL RATIO 5.2 (<5.0); CHOLESTEROL 146 mg/dL; GFR - MDRD 75 (>89); GLUCOSE 109 mg/dL (70-100); HDL CHOLESTEROL 28 mg/dL; LDL CHOLESTEROL,CALCULATED 87 mg/dL; LDL/HDL RATIO 3.1 (<3.6); POTASSIUM 3.8 mmol/L (3.5-5.0); SODIUM 135 mmol/L (135-145); TOTAL PROTEIN 7.3 g/dL (6.7-8.2); TRIGLYCERIDES 154 mg/dL; VLDL CHOLESTEROL 31 mg/dL
[2022-10-11 12:26] LABS: THYROID STIMULATING HORMONE 5.24 uIU/mL (0.34-5.60)
== END 2022-10-11 11:43 | disposition home or self-care (01) ==
LOC: LAB 11:42
PROVIDERS: ATTEND Registered Nurse
DX: E78.5 Hyperlipidemia, unspecified (principal); Z79.899 Other long term (current) drug therapy; Z12.5 Encounter for screening for malignant neoplasm of prostate; E03.9 Hypothyroidism, unspecified
CPT/HCPCS: 36415; 80053; 80061; 84443; 85025; G0103; 83721; 84153

== ENCOUNTER 2022-11-26 08:00 | Outpatient (CLI) | payer MEDICARE ==
--- NOTE | 2022-11-26 15:36 | XRAY Report ---
PROCEDURE: Ankle 3 View LT INDICATIONS: LEFT ANKLE ORIF TECHNIQUE: 3 views of the ankle were acquired. COMPARISON: 09/26/2022 and 08/15/2022. FINDINGS: Bones: Stable postsurgical changes from open reduction internal fixation of oblique distal left fibul ar fracture with screw fixation. No evidence for hardware loosening or failure. Postoperative alignme nt is stable. There has been some decrease fracture line conspicuity consistent with progress towards fracture healing. Other visualized osseous structures appear intact. Stable alignment. Ankle mortise is maintained. No suspicious bony lesions. Soft tissues: No tibiotalar joint effusion. Achilles tendon appears normal. IMPRESSION: Stable postsurgical changes from open reduction and internal fixation of distal fibular fracture with out evidence for hardware complication. Stable postsurgical alignment. Slight interval decrease in fr acture conspicuity suggestive of progress towards fracture healing. Reviewed by: Abdoul Hare MD on 11/26/2022 3:35 PM PDT Approved by: Abdoul Hare MD on 11/26/2022 3:35 PM PDT Station ID: [id number]
== END 2022-11-26 08:01 | disposition home or self-care (01) ==
LOC: DI.WOS 08:00
PROVIDERS: ATTEND Orthopaedic Surgery
DX: S82.62XD Displaced fracture of lateral malleolus of left fibula, subsequent encounter for closed fracture with routine healing (principal)

== ENCOUNTER 2023-02-26 08:22 | Outpatient (CLI) | payer MEDICARE ==
--- NOTE | 2023-03-01 14:27 | CT Report ---
PROCEDURE: Low Dose Lung Cancer Screen INDICATIONS: CIGARETTE SMOKER TECHNIQUE: A CT scan of the chest was performed. Intravenous contrast media was not administered. Images were re corded and evaluated at appropriate window settings. Reformats: axial MIP of the chest, coronal and s agittal. For radiation dose reduction, the following was used: automated exposure control, adjustment of mA and/or kV according to patient size. COMPARISON: None. FINDINGS: Image quality: Excellent. Prior cancer history: None Lungs and pleura: Severe emphysematous changes predominantly in the upper lobes. Dependent atelectasi s. No pleural effusions. No pneumothorax. There are multiple scattered solid pulmonary nodules. The largest nodule measures 1.1 cm in the right lower lobe (axial series 3, image 59). There is an adjace nt 8 mm solid pulmonary nodule on the right lower lobe (axial series 3, image 61). Mediastinum: Heart size is normal. No pericardial effusion. Coronary artery and aortic arch atheroscl erotic calcifications. No mediastinal adenopathy by size criteria. Chest wall and lower neck: Thyroid is unremarkable. No axillary or supraclavicular adenopathy by size . Partially visualized right ventriculostomy catheter. Bones: No aggressive osseous abnormality. Upper Abdomen: Unremarkable. Partially visualized ventriculostomy catheter. IMPRESSION: Multiple solid pulmonary nodules measuring up to 1.1 cm in the right lower lobe on baseline examinati on. Lung RAD: 4A - Suspicious. Recommendation: Follow up in 3 months with LDCT; PET/CT may be used when there is a "e8mm solid compo nent Non-Lung Significant Findings: Coronary Arterial Calcification - Moderate or Severe. Reviewed by: Grazyna Polo MD on 03/01/2023 2:26 PM PDT Approved by: Grazyna Polo MD on 03/01/2023 2:26 PM PDT Station ID: [id number]
== END 2023-02-26 08:23 | disposition home or self-care (01) ==
LOC: DI 08:22
PROVIDERS: ATTEND Registered Nurse
DX: Z12.2 Encounter for screening for malignant neoplasm of respiratory organs (principal); R91.8 Other nonspecific abnormal finding of lung field; F17.210 Nicotine dependence, cigarettes, uncomplicated

== ENCOUNTER 2023-06-10 08:38 | Outpatient (CLI) | payer MEDICARE ==
--- NOTE | 2023-06-11 21:45 | CT Report ---
PROCEDURE: CHEST WO INDICATIONS: MULTIPLE LUNG NODULES TECHNIQUE: Noncontrast 1mm axial images were acquired from the pulmonary apices to the posterior costophrenic an gles. Axial 5 mm soft tissue kernel reconstructions were performed as well as 8 mm axial MIP and cor onal and sagittal 5 mm reformations. For radiation dose reduction, the following was used: automate d exposure control, adjustment of mA and/or kV according to patient size. COMPARISON: 02/26/2023 FINDINGS: Image quality: Excellent. Lungs and pleura: Severe upper lobe predominant pulmonary emphysematous changes are again noted. Depe ndent atelectasis. No septal thickening or nodularity. Multiple small bilateral pulmonary nodules are again noted. These are not significantly changed. Largest is again noted in the right lower lobe christine suring approximately 1.1 cm (181/series 3). As before, this abuts the right major fissure. Immediatel y adjacent and medial to this nodule is a second pulmonary nodule measuring 8 mm in size. This is als o unchanged. No new or enlarging pulmonary nodules identified. No suspicious pulmonary masses. No ple ural effusions. No pneumothorax. Mediastinum: Heart size is normal. Atherosclerotic calcifications of the coronary arteries and thorac ic aorta. No pericardial effusion. No large vessel abnormality. No mediastinal adenopathy by size cri teria. Chest wall and lower neck: Thyroid is unremarkable. No axillary or supraclavicular adenopathy by size . Bones: No aggressive osseous abnormality. No acute compression fractures. Upper Abdomen: Right-sided ventriculoperitoneal shunt tubing is again noted with the distal tip noted in the anterior left upper abdomen. Visualized upper abdominal structures are otherwise unremarkable . IMPRESSION: 1. Stable size, number, and distribution of multiple bilateral pulmonary nodules with the largest christine suring 1.1 cm seen in the right lower lobe. No new or enlarging suspicious pulmonary nodules. 2. Severe upper lobe predominant pulmonary emphysema, stable. 3. Atherosclerotic vascular disease. Lung RADS 4A (suspicious): Recommend follow-up chest CT in 6 months to document continued stability; PET/CT may also be considered. Reviewed by: Abdoul De La Rosa MD on 06/11/2023 9:44 PM PST Approved by: Abdoul De La Rosa MD on 06/11/2023 9:44 PM PST Station ID: [id number]
== END 2023-06-10 08:39 | disposition home or self-care (01) ==
LOC: DI 08:38
PROVIDERS: ATTEND Registered Nurse
DX: R91.8 Other nonspecific abnormal finding of lung field (principal); J43.9 Emphysema, unspecified; I25.10 Atherosclerotic heart disease of native coronary artery without angina pectoris

== ENCOUNTER 2023-08-30 14:28 | Emergency (ER) | payer MEDICARE ==
[2023-08-30] MEDS ORDERED: iohexoL-300 100 ML VIAL ONE (14:50)
[2023-08-30 14:58] LABS: BASOPHILS # (AUTO) 0.1 10^3/uL (0.0-0.1); BASOPHILS % (AUTO) 0.8 %; EOSINOPHILS # (AUTO) 0.5 10^3/uL (0.0-0.7); EOSINOPHILS % (AUTO) 4.9 %; HCT - HEMATOCRIT 47.2 % (42.0-52.0); HGB - HEMOGLOBIN 15.3 g/dL (14.0-18.0); LYMPHOCYTES # (AUTO) 1.6 10^3/uL (1.5-3.5); MEAN CORPUSCULAR HEMOGLOBIN 29.9 pg (27.0-31.0); MEAN CORPUSCULAR HGB CONC 32.4 g/dL (32.0-36.0); MEAN CORPUSCULAR VOLUME 92.4 fL (80.0-94.0); MEAN PLATELET VOLUME 8.4 fL (7.4-11.4); MONOCYTES # (AUTO) 0.7 10^3/uL (0.0-1.0); MONOCYTES % (AUTO) 7.2 %; NEUTROPHILS # (AUTO) 6.4 10^3/uL (1.5-6.6); NEUTROPHILS % (AUTO) 69.7 %; PLT - PLATELET COUNT 298 10^3/uL (130-450); RED BLOOD COUNT 5.11 10^6/uL (4.70-6.10); RED CELL DISTRIBUTION WIDTH 12.8 % (12.0-15.0); WHITE BLOOD COUNT 9.2 x10^3/uL (4.8-10.8)
--- NOTE | 2023-08-30 15:02 | ED Physician Documentation ---
History of Present Illness - Stated complaint Stated Complaint: DIZZY/DOUBLE VISION - Chief complaint Chief Complaint: Neuro - History obtained from History obtained from: Patient, Family - History of Present Illness Timing: Today Pain level max: 0 Pain level now: 0 - Additonal information Additional information: 63-year-old male presents to the emergency department stating that he had double vision earlier today. Lasted for about 20 minutes. Lillian like the images were on top of each other, did not seem to change when he covered 1 eye or the other. This occurred while he was sitting at home watching TV. No headache. No chest pain. No shortness of breath. Has not had similar symptoms previously. He states that he did have a history of a ruptured brain aneurysm about 12 years ago. Patient states he felt mildly dizzy when this occurred. He currently is fully asymptomatic. 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 Has never had of shunt malfunction. Did not have any focal neurological deficits. No speech difficulty or facial droop. Review of Systems Constitutional: denies: Fever, Chills Respiratory: denies: Dyspnea, Cough GI: denies: Nausea, Vomiting, Diarrhea Skin: denies: Rash Musculoskeletal: denies: Neck pain, Back pain Neurologic: denies: Headache PD PAST MEDICAL HISTORY - Past Medical History Past Medical History: Yes Cardiovascular: Hypertension, High cholesterol Respiratory: Other Neuro: Other Endocrine/Autoimmune: HyPOthyroidism GI: None : None Psych: Depression Musculoskeletal: Chronic back pain Derm: None - Past Surgical History Neuro: Other - Present Medications Home Medications: Ambulatory Orders Medication Instructions Recorded Confirmed HYDROcod/ACETAM 5/325 [Duncan 5/325] 1 - 2 tab PO Q6H PRN #15 tablet 05/09/22 05/14/22 Knee Scooter 1 unit TD ONCE #1 05/09/22 05/14/22 Levothyroxine [Synthroid] 200 mcg PO QDAC 05/09/22 08/30/23 Metoprolol Tartrate [Lopressor] 50 mg PO DAILY 05/09/22 08/30/23 buPROPion HCL [Wellbutrin Xl] 300 mg PO DAILY 05/09/22 08/30/23 oxyCODONE [Roxicodone] 5 mg PO Q4-6H PRN #24 tablet 05/15/22 - Allergies Allergies/Adverse Reactions: Allergies Allergy/AdvReac Type Severity Reaction Status Date / Time Iodinated Contrast Media Allergy Hives Verified 08/30/23 15:06 - Social History Does the pt smoke?: Yes Smoking Status: Current every day smoker Does the pt drink ETOH?: Yes Does the pt have substance abuse?: No - Immunizations Immunizations are current?: Yes - POLST Patient has POLST: No PD ED PE NORMAL - Vitals Vital signs reviewed: Yes - General General: Alert and oriented X 3, No acute distress - HEENT HEENT: Atraumatic, PERRL, EOMI, Ears normal, Moist mucous membranes - Neck Neck: Supple, no meningeal sign - Cardiac Cardiac: RRR, Strong equal pulses - Respiratory Respiratory: No respiratory distress, Clear bilaterally - Abdomen Abdomen: Soft, Non tender, Non distended - Back Back: No CVA TTP, No spinal TTP - Derm Derm: Warm and dry - Extremities Extremities: No edema - Neuro Neuro: Alert and oriented X 3, relocation services specialist 2-12 intact, No motor deficit, No sensory deficit, Normal speech Eye Opening: Spontaneous Motor: Obeys Commands Verbal: Oriented GCS Score: 15 - Psych Psych: Normal mood, Normal affect Results - Vitals Vitals: Vital Signs - 24 hr 08/30/23 08/30/23 08/30/23 14:33 16:17 16:30 Temperature 37.3 C Heart Rate 68 77 75 Respiratory 20 14 18 Rate Blood Pressure 170/82 H 144/91 H 122/81 H O2 Saturation 100 95 94 Oxygen O2 Source Room air - EKG (time done) 1456 EKG releavant findings:: EKG personally interpreted by author of this note. Relevant findings are: Rate: Rate (enter#) (66) Rhythm: NSR [place]: Normal Intervals: Normal CT QRS: Normal Ischemia: Normal ST segments - Labs Labs: Laboratory Tests 08/30/23 08/30/23 08/30/23 14:54 14:54 14:54 WBC 9.2 RBC 5.11 Hgb 15.3 Hct 47.2 MCV 92.4 MCH 29.9 MCHC 32.4 RDW 12.8 Plt Count 298 MPV 8.4 Neut # (Auto) 6.4 Lymph # (Auto) 1.6 [place] # (Auto) 0.7 Eos # (Auto) 0.5 Baso # (Auto) 0.1 Absolute Nucleated RBC 0.00 Nucleated RBC % 0.0 PT 13.9 H INR 1.3 H Sodium 132 L Potassium 4.0 Chloride 99 L Carbon Dioxide 25 Anion Gap 8.0 BUN 11 Creatinine 1.1 Estimated GFR (MDRD) 67 L Glucose 107 H Calcium 9.2 Total Bilirubin 0.5 AST 20 ALT 14 Alkaline Phosphatase 102 Troponin I High Sens Total Protein 7.6 Albumin 3.9 Globulin 3.7 Albumin/Globulin Ratio 1.1 Lipase 43 08/30/23 14:54 WBC RBC Hgb Hct MCV MCH MCHC RDW Plt Count MPV Neut # (Auto) Lymph # (Auto) [place] # (Auto) Eos # (Auto) Baso # (Auto) Absolute Nucleated RBC Nucleated RBC % PT INR Sodium Potassium Chloride Carbon Dioxide Anion Gap BUN Creatinine Estimated GFR (MDRD) Glucose Calcium Total Bilirubin AST ALT Alkaline Phosphatase Troponin I High Sens 3.7 Total Protein Albumin Globulin Albumin/Globulin Ratio Lipase - Rads (name of study) CT head Relevant Findings:: Final report received, See rad report CT angio head and neck Relevant Findings:: Final report received, See rad report PD Medical Decision Making - ED course Complexity details: reviewed results, re-evaluated patient, considered freddy andrew, d/w patient, d/w family ED course: Patient with double vision and mild dizziness earlier today, symptoms resolved prior to arrival. No other focal neurological deficits. No evidence of stroke. No headache. No evidence of FUNDS TRANSFER CLERK shunt malfunction or aneurysm. No significant lab abnormalities. Unclear etiology of his symptoms. Recommend outpatient MRI with his doctor. We will continue his current medications and follow-up with his PCP for further care. NIH stroke scale of 0. Normal gait. Normal cerebellar test. Patient counseled regarding signs and symptoms for which I believe and urgent re-evaluation would be necessary. Patient with good understanding of and agreement to plan and is comfortable going home at this time This document was made in part using voice recognition software. While efforts are made to proofread this document, sound alike and grammatical errors may occur. Departure - Departure Disposition: 01 Home, Self Care Clinical Impression: Double vision, Dizziness Condition: Good Instructions: ED Dizziness [facility] Follow-Up: Kristina Torres ARNP [Primary Care Provider] - Comments: Your CT scan of your head as well as the CT angiogram of your head and neck do not show any acute abnormalities. Your shunt appears to be in place. Your ventricles are not significantly enlarged. There is no evidence of shunt malfunction. Your symptoms have resolved today. Your doctor may want to order a brain MRI to rule out any further causes of your symptoms today. MRI is not available here until Friday. Please return if you worsen. Please continue your current medications. Your laboratory testing does not show any significant abnormalities either. Your sodium levels are mildly low, but that would not cause the symptoms. Forms: PCP List Discharge Date/Time: 08/30/23 16:37 NIHSS - Time Time: 14:54 - Level of Consciousness Level of consciousness: (0) Alert, Keenly responsive LOC Questions: (0) Answers both Q's correct LOC Commands: (0) Performs both correctly - Gaze Best Gaze: (0) Normal - Visual Visual: (0) No loss - Facial Palsy Facial Palsy: (0) Normal, symmetrical movement - Motor Arms (both separate) Motor Arm (right): (0) No drift Motor Arm (left): (0) No drift - Motor Legs (both separate) Motor Leg (right): (0) No drift Motor Leg (left): (0) No drift - Limb Ataxia Limb Ataxia: (0) Absent - Sensory Sensory: (0) Normal - Best Language Best Language: (0) No aphasia - Dysarthria Dysarthria: (0) Normal - Extinction and Inattention (formally neg Extinction and inattention: (0) No abnormality - Total Score/Results Total Score/Result: 0
[2023-08-30 15:36] LABS: INR 1.3 (0.8-1.2); PT - PROTHROMBIN TIME 13.9 secs (9.9-12.6)
[2023-08-30 15:38] LABS: ALBUMIN 3.9 g/dL (3.2-5.5); ALBUMIN/GLOBULIN RATIO 1.1 (1.0-2.2); BILIRUBIN,TOTAL 0.5 mg/dL (0.2-1.0); CALCIUM 9.2 mg/dL (8.5-10.3); CREATININE 1.1 mg/dL (0.6-1.3); TOTAL PROTEIN 7.6 g/dL (6.4-8.9)
[2023-08-30] MEDS: diphenhydrAMINE INJ 50 MG/ML VIAL IVP STA (15:50)
--- NOTE | 2023-08-30 16:19 | CT Report ---
PROCEDURE: Head WO INDICATIONS: dizzy, blurred vision, h/o brain aneurysm TECHNIQUE: Noncontrast 4.5 mm thick angled axial sections acquired from the foramen magnum to the vertex. For r adiation dose reduction, the following was used: automated exposure control, adjustment of mA and/or kV according to patient size. COMPARISON: Correlation is made with the accompanying imaging. FINDINGS: Image quality: Excellent. CSF spaces: There is a right parietal approach ventriculostomy catheter seen, with the tip crossing the midline and seen within the left lateral ventricle anteriorly. Basal cisterns are patent. No ext ra-axial fluid collections. The lateral ventricles are symmetrically prominent. No nayeli acute hydroc ephalus can be seen. Brain: There is anterior cerebral artery aneurysm clip seen to the right of the midline. Encephalomalacia can be seen involving both frontal lobes, with volume loss. No midline shift. No intracranial masses or hemorrhage. Buck-white matter interface is normal. Skull and face: Anterior craniotomy change can be seen. Calvarium and visualized facial bones are in tact, without suspicious lesions. Sinuses: There is subtotal opacification seen involving the maxillary sinuses. Milder mucosal thicken ing can be seen elsewhere within the paranasal sinuses. No significant abnormal fluid can be seen wit hin the mastoid air cells. IMPRESSION: No intracranial hemorrhage is seen. Prior postoperative change, with right DONNA territory aneurysm clipping. Prior bilateral frontal infarctions. There is a right parietal approach ventriculostomy catheter within the left lateral ventricle. The ve ntricles are prominent, yet without nayeli acute hydrocephalus. Paranasal sinus disease, which is worst within the maxillary sinuses. Reviewed by: Jamshid Rodriges MD on 08/30/2023 3:18 PM [place] Approved by: Jamshid Rodriges MD on 08/30/2023 3:18 PM [facility] Station ID: [id number]
--- NOTE | 2023-08-30 16:21 | CT Report ---
PROCEDURE: Angio Head/Neck INDICATIONS: dizzy, blurred vision, h/o brain aneurysm TECHNIQUE: After the administration of intravenous contrast, 1 mm thick sections acquired from the aortic arch t hrough the [place]. 3-dimensional ngidwlw-phepctjgs-kbfofbjkor (MIP) and/or volume renderin g reformats were acquired of the central intracranial vasculature and neck separately. For radiation dose reduction, the following was used: automated exposure control, adjustment of mA and/or kV acco rding to patient size. CONTRAST: 80ml omni 300 COMPARISON: None. FINDINGS: Image quality: Limited by bolus timing, with venous contamination. HEAD CT: CSF Spaces: There is a right frontal approach ventriculostomy catheter. Basal cisterns are patent. No extra-axial fluid collections. Ventricles are prominent, without nayeli acute hydrocephalus. Brain: Remote infarctions can be seen involving both frontal lobes. Skull and face: Anterior craniotomy change can be seen. Calvarium and visualized facial bones appear intact, without suspicious lesions. Sinuses: Visualized sinuses and mastoids are clear. HEAD CT ANGIOGRAPHY: Anterior circulation: Intracranial internal carotid arteries are normal in size and flow. The flow within the paired anterior cerebral arteries is normal and symmetric. There is a prior aneurysm clip seen involving the DONNA territory, to the right of the midline. The flow within the middle cerebral ar teries is normal and symmetric. The anterior communicating artery is seen. No aneurysms are seen. Posterior circulation: Visualized portions of the vertebral arteries demonstrate normal caliber, and join to form a normal appearing basilar artery. Flow within the posterior cerebral arteries is norm al and symmetric. No aneurysms are seen. NECK CT ANGIOGRAPHY: Carotid system: The great vessels demonstrate a conventional anatomy as they arise from the aortic a [facility]. The origins of the common carotid arteries appear patent. The common carotid arteries demonstr ate normal caliber and courses. The bifurcation regions are both widely patent. The internal caroti d arteries demonstrate normal calibers and courses. Posterior circulation: The origins of the vertebral arteries both appear widely patent. The more ludwig perior extracranial portions of both vertebral arteries also demonstrate normal courses and calibers. They join to form a normal appearing basilar artery. Soft tissues: Visualized neck soft tissues demonstrate no suspicious abnormalities. Bones: No suspicious bony lesions. Visualized cervical spine appears normally aligned. Focal lower cervical spine degenerative change can be seen. IMPRESSION: Prior right DONNA aneurysm clipping. No recurrent aneurysm is seen. No significant intracranial arterial abnormality is seen. No significant abnormality is seen within the arteries of the neck. The estimate of stenosis included in the report of the imaging study was calculated using the NASCET method Reviewed by: Jamshid Rodriges MD on 08/30/2023 3:20 PM [facility] Approved by: Jamshid Rodriges MD on 08/30/2023 3:20 PM [facility] Station ID: [id number]
[2023-08-30 16:38] VITALS: BP 122/81; O2SAT 94
[2023-08-30] MEDS: iohexoL-300 100 ML VIAL IVP ONE (17:24)
== END 2023-08-30 16:37 | disposition home or self-care (01) ==
LOC: ED 14:28
DX: H53.2 Diplopia (principal); R42 Dizziness and giddiness; I10 Essential (primary) hypertension; E78.00 Pure hypercholesterolemia, unspecified; E03.9 Hypothyroidism, unspecified; F17.200 Nicotine dependence, unspecified, uncomplicated; R29.700 NIHSS score 0; Z79.899 Other long term (current) drug therapy
CPT/HCPCS: 36415; 70450; 70496; 70498; 80053; 83690; 84484; 85025; 85610; 93005; 96374; 99284; J1200; Q9967

== ENCOUNTER 2023-12-08 07:21 | Outpatient (CLI) | payer MEDICARE ==
--- NOTE | 2023-12-08 09:42 | CT Report ---
PROCEDURE: Chest WO INDICATIONS: LUNG NODULE TECHNIQUE: A CT scan of the chest was performed. Intravenous contrast media was not administered. Images were re corded and evaluated at appropriate window settings. Reformats: axial MIP of the chest, coronal and s agittal. For radiation dose reduction, the following was used: automated exposure control, adjustment of mA and/or kV according to patient size. COMPARISON: 02/26/2023, 06/10/2023 FINDINGS: Image quality: Diagnostic. Chest wall and lower neck: The thyroid gland is not well seen. There is a [employer]IDENT [employer] shunt tubing coursing in the subcutaneous right anterior chest wall. Incidental note of an intramuscular round hypodensity wi th a mean diameter of 2.3 cm anterior to the left scapula and subscapularis muscle, stable. No axilla ry or supraclavicular adenopathy by size. Lungs and pleura: There are several stable bilateral solid nodules on a background of moderate upper lobe paraseptal and centrilobular emphysema. The largest posterior right upper lobe nodules has a christine n diameter of 0.7 cm. The largest is a juxta fissural nodule in the right lower lobe with a mean diam eter of 1.0 cm. The largest solid nodule in the left upper lobe has an anterior midlung level has a m chaka diameter of 0.6 cm, series 12 image 248. No new nodule or significant nodule growth. Gravitationa l changes at both lung bases. No other groundglass opacities or consolidations. Mild segmental airway thickening. No pleural effusions. No pneumothorax. Mediastinum: Heart size is normal. No pericardial effusion. Mild coronary artery calcification. No la rge vessel abnormality. No mediastinal adenopathy by size criteria. Bones: No aggressive osseous abnormality. Upper Abdomen: [employer] shunt tubing in the left upper quadrant. Visible portions of the upper abdomen are otherwise normal. IMPRESSION: Stable bilateral solid lung nodules on a background of emphysema. Lung RADS category 3, probably benign. Six-month follow-up chest CT recommended. Emphysema and mild airway thickening suggesting COPD. Reviewed by: Wendy Flores MD on 12/08/2023 9:41 AM PDT Approved by: Wendy Flores MD on 12/08/2023 9:41 AM PDT Station ID: [id number]
== END 2023-12-08 07:22 | disposition home or self-care (01) ==
LOC: DI 07:21
PROVIDERS: ATTEND Registered Nurse
DX: J43.9 Emphysema, unspecified (principal); R91.8 Other nonspecific abnormal finding of lung field

== ENCOUNTER 2024-10-16 10:08 | Inpatient (IN) ==
[2024-10-16 10:27] LABS: BASOPHILS # (AUTO) 0.1 10^3/uL (0.0-0.1); BASOPHILS % (AUTO) 0.2 %; EOSINOPHILS % (AUTO) 0.2 %; HCT - HEMATOCRIT 44.6 % (42.0-52.0); HGB - HEMOGLOBIN 15.5 g/dL (14.0-18.0); LYMPHOCYTES # (AUTO) 0.4 10^3/uL (1.5-3.5); LYMPHOCYTES % (AUTO) 1.7 %; MEAN CORPUSCULAR HEMOGLOBIN 31.6 pg (27.0-31.0); MEAN CORPUSCULAR HGB CONC 34.8 g/dL (32.0-36.0); MEAN CORPUSCULAR VOLUME 90.8 fL (80.0-94.0); MEAN PLATELET VOLUME 8.5 fL (7.4-11.4); MONOCYTES # (AUTO) 1.8 10^3/uL (0.0-1.0); MONOCYTES % (AUTO) 8.4 %; PLT - PLATELET COUNT 219 10^3/uL (130-450); RED BLOOD COUNT 4.91 10^6/uL (4.70-6.10); RED CELL DISTRIBUTION WIDTH 12.8 % (12.0-15.0); WHITE BLOOD COUNT 21.4 x10^3/uL (4.8-10.8)
[2024-10-16 10:34] LABS: SLIDE REVIEW? Indicated
[2024-10-16 10:37] LABS: PARTIAL THROMBOPLASTIN TIME 28.2 secs (24.9-33.3)
[2024-10-16 10:41] LABS: INR 1.5 (0.8-1.2); PT - PROTHROMBIN TIME 16.2 secs (9.9-12.6)
[2024-10-16] MEDS: SODIUM CHLORIDE 0.9% 1,000 ML IV STA ×2 (10:41)
[2024-10-16 10:47] LABS: RBC MORPHOLOGY (MULTIPLE) 1+ ANISOCYTOSIS (NORMAL)
--- NOTE | 2024-10-16 10:50 | ED Physician Documentation ---
PD HPI SYNCOPE Stated complaint Stated Complaint: SYNCOPE Chief complaint Chief Complaint: Neuro History obtained from History obtained from: Patient and Family History of Present Illness Pain level max: 0 Pain level now: 0 Additional information Additional information: Patient is a 64-year-old male brought into the emergency department for syncope at home. Was not witnessed. states that he usually gets up before her. He states that he remembers getting up this morning but does not remember much else. History of brain aneurysm with what sounds like clipping about 12 to 15 years ago. No history of syncope. Has had complaints of not feeling well for the past few days. He states that he drinks at least a sixpack a day. He smokes cigarettes as well. states that he recently changed brands and is wondering if that is contributing to his cough and not feeling well. Does not use oxygen at home. Does not use inhalers. Currently does not have a headache or any focal neurological deficits. Kennan Coma Scale Assess Eye opening: Spontaneous Verbal response: Oriented Motor response: Obeys Commands Total score: 15 Review of Systems Constitutional Denies: Fever or Chills Ears, nose, mouth, and throat Denies: Neck pain Cardiovascular Denies: chest pain or shortness of breath with exertion Respiratory Denies: Shortness of breath Gastrointestinal Denies: Abdominal pain or Vomiting Genitourinary Denies: Painful urination or Flank pain Musculoskeletal Denies: Neck pain Neurological Denies: Headache Meds/Allgy Home Medications Ambulatory Orders Medication Instructions Recorded Confirmed Knee Scooter 1 unit transdermal ONCE ##1 05/09/22 05/14/22 bupropion HCl 300 mg 24 hr tablet, 300 mg PO DAILY 05/09/22 10/16/24 extended release (Wellbutrin XL) hydrocodone 5 mg-acetaminophen 325 1 - 2 tab PO Q6H PRN Pain #15 tabs 05/09/22 10/16/24 mg tablet levothyroxine 125 mcg tablet 200 mcg PO QDAC 05/09/22 10/16/24 metoprolol tartrate 50 mg tablet 50 mg PO DAILY 05/09/22 10/16/24 oxycodone 5 mg tablet 5 mg PO Q4-6H PRN Pain #24 tabs 05/15/22 10/16/24 atorvastatin 80 mg tablet (Lipitor) 80 mg PO QPM 10/07/24 10/16/24 ibuprofen 200 mg tablet 200 mg PO DIRECTED PRN fever or 10/07/24 10/16/24 pain Allergies Allergies Allergy/AdvReac Type Severity Reaction Status Date / Time Iodinated Contrast Media Allergy Hives Verified 10/16/24 10:39 [facility] Active Problems All Active Problems (Updated 10/16/24 @ 16:44 by EZEKIEL Torres) Leukocytosis (Acute) Acute hypoxic respiratory failure (Acute) Daily consumption of alcohol (Acute) Dehydration (Acute) Acute hyponatremia (Acute) Hypoxia (Acute) Syncope (Acute) COPD exacerbation (Acute) History of high blood pressure (Acute) Lumbar disc disorder with myelopathy (Acute) Cerebral aneurysm, nonruptured (Acute) Hypothyroidism (Acute) ETOH abuse (Acute) Hx of low back pain (Acute) Impaired fasting glucose (Acute) Tobacco use disorder (Acute) Family history of abdominal aortic aneurysm (Acute) Smoker (Acute) Hyperlipidemia (Acute) Benign hypertension (Acute) Depression with anxiety (Acute) Multiple nodules of lung (Acute) Emphysema, unspecified (Acute) Screening for prostate cancer (Acute) Surgical History Surgical History S/P ventricular shunt placement Left cerebral Family History Family History (Updated 10/15/24 @ 09:09 by Makenzie Jaimes LPN) Father Substance abuse Grandfather Brain aneurysm Mother Thyroid disorder High blood pressure Colon cancer CAD (coronary artery disease) Social History Social History (Updated 10/16/24 @ 10:22 by Tim Cobian RN, BSN) Smoking Status: Current every day smoker How many cigarettes a day do you smoke? (20 cigarettes=1 Pk): 20 Do you dip or chew tobacco?: No Do you vape?: No Living arrangement: At home Marital Status: Living Condition: With spouse/s.o. Relationship: Physical Activity: Walking Level: Independent Do you feel safe in your home environment?: Yes Suffered physical, verbal, emotional, or financial abuse?: No History of Abuse: No ETOH Use: Beer Frequency: Daily Number of Amount/day: 6 Substance Use: denies use POLST Patient has POLST: No Exam Constitutional normal general appearance and no apparent distress HENMT oropharynx normal moist mucous membranes Eyes PERRL Neck/C-Spine visual inspection normal Respiratory breath sounds equal bilaterally, normal respiratory effort and clear to auscultation bilaterally decreased breath sounds bilaterally Cardiovascular regular rhythm noted Tachycardic Gastrointestinal abdomen normal to inspection, abdomen soft to palpation, nontender to palpation and nondistended Genitourinary no CVA tenderness Extremities no deformity no edema Neurology speech normal Psychiatry mental status grossly normal and oriented x3 Skin skin color normal Results Vitals Vitals: Vital Signs - 24 hr 10/16/24 10:09 10/16/24 10:17 10/16/24 10:37 Pulse Rate 122 H Respiratory Rate 16 Blood Pressure 169/76 H O2 Saturation 88 L Oxygen Delivery Method Nasal Cannula Nasal Cannula O2 Source Room air Oxygen Flow Rate 2 If not protocol: Oxygen Flow, liters/minute 2 Pain Intensity 0 10/16/24 12:19 10/16/24 14:00 10/16/24 15:20 Pulse Rate 88 81 85 Respiratory Rate 14 16 16 Blood Pressure 142/108 H 143/89 H O2 Saturation 96 98 Oxygen Delivery Method O2 Source Nasal cannula Nasal cannula Nasal cannula Oxygen Flow Rate If not protocol: Oxygen Flow, liters/minute 2 2 2 Pain Intensity 0 0 10/16/24 16:00 Pulse Rate 76 Respiratory Rate 14 Blood Pressure 146/82 H O2 Saturation 90 L Oxygen Delivery Method O2 Source Nasal cannula Oxygen Flow Rate If not protocol: Oxygen Flow, liters/minute 0.5 Pain Intensity 0 Oxygen O2 Source Nasal cannula Oxygen Flow Rate 2 EKG (time done) 1033: EKG releavant findings:: EKG personally interpreted by author of this note. Relevant findings are: Rate: Other (113 bpm. Sinus tachycardia. Normal axis. Normal MN interval. Normal QRS. Normal ST segments.) Labs Labs: Laboratory Tests 10/16/24 10/16/24 10/16/24 10:21 10:24 12:19 WBC 21.4 H RBC 4.91 Hgb 15.5 Hct 44.6 MCV 90.8 MCH 31.6 H MCHC 34.8 RDW 12.8 Plt Count 219 MPV 8.5 Neut # (Auto) 19.0 H Lymph # (Auto) 0.4 L [place] # (Auto) 1.8 H Eos # (Auto) 0.0 Baso # (Auto) 0.1 Absolute Nucleated RBC 0.00 Nucleated RBC % 0.0 Manual Slide Review Indicated RBC Morph Micro Appear 1+ ANISOCYTOSIS PT 16.2 H INR 1.5 H APTT 28.2 Sodium 125 L Potassium 3.9 Chloride 93 L Carbon Dioxide 23 Anion Gap 9.0 BUN 12 Creatinine 1.2 Estimated GFR (MDRD) 61 L Glucose 111 H Calcium 9.5 Phosphorus 2.7 Magnesium 1.6 L Total Bilirubin 1.1 H AST 22 ALT 16 Alkaline Phosphatase 123 H Troponin I High Sens 14.7 Total Protein 7.4 Albumin 3.8 Globulin 3.6 Albumin/Globulin Ratio 1.1 Lipase 23 Nasal Adenovirus (PCR) NOT DETECTED Nasal B. parapertussis DNA (PCR) NOT DETECTED Nasal Coronavir 229E PCR NOT DETECTED Nasal Coronavir HKU1 PCR NOT DETECTED Nasal Coronavir NL63 PCR NOT DETECTED Nasal Coronavir OC43 PCR NOT DETECTED Nasal Enterovir/Rhinovir PCR NOT DETECTED Nasal Influenza B PCR NOT DETECTED Nasal Influenza A PCR NOT DETECTED Nasal Parainfluen 1 PCR NOT DETECTED Nasal Parainfluen 2 PCR NOT DETECTED Nasal Parainfluen 3 PCR NOT DETECTED Nasal Parainfluen 4 PCR NOT DETECTED Nasal RSV (PCR) NOT DETECTED Nasal B.pertussis DNA PCR NOT DETECTED Nasal C.pneumoniae (PCR) NOT DETECTED [place] Human Metapneumo PCR NOT DETECTED Nasal M.pneumoniae (PCR) NOT DETECTED Nasal SARS-CoV-2 (PCR) NOT DETECTED Urine Opiates Screen NEGATIVE Ur Buprenorphine Scrn NEGATIVE Ur Oxycodone Screen NEGATIVE Urine Methadone Screen NEGATIVE Ur Barbiturates Screen NEGATIVE Ur Tricyclics Screen NEGATIVE Ur Phencyclidine Scrn NEGATIVE Ur Amphetamine Screen NEGATIVE U Methamphetamines Scrn NEGATIVE U Benzodiazepines Scrn NEGATIVE Urine Cocaine Screen NEGATIVE U Cannabinoids Screen NEGATIVE Ur Drug Screen Comment CUTOFF CONC BELOW: Ethyl Alcohol < 10.0 Rads (name of study) head CT: Relevant Findings:: Final report received chest angio ct: Relevant Findings:: Final report received cxr: Relevant Findings:: Final report received PD Medical Decision Making ED course Complexity details: reviewed results, re-evaluated patient, considered differential and d/w patient ED course: Patient is a 64-year-old male with a history of emphysema and brain aneurysm presents to the emergency department after syncopal event today at home. came out and found him on the floor unconscious. He does not recall the events. He was tachycardic and hypoxic upon arrival to the emergency department. Therefore a CT pulmonary angiogram was performed to evaluate for possible PE. This is negative. Head CT was also performed as he does have a history of aneurysm, this does not show any acute abnormalities. His sodium levels were found to be quite low, 125, baseline is around 1 31-1 37. No arrhythmias on telemetry in the emergency department. Heart rate decreased with IV fluids. EKG does not show any significant abnormalities. He remains hypoxic, dropping down to 88% on 2 L while sitting in bed, further with any sort of movement. Given Solu-Medrol and Benadryl as premedication for his CT scan because he has had a rash from IV contrast before, this should help the COPD as well. Given albuterol treatment. Will place in observation for syncope, hyponatremia and hypoxia. Discussed case with the hospitalist who accepts. This document was made in part using voice recognition software. While efforts are made to proofread this document, sound alike and grammatical errors may occur. Discharge Plan Discharge Patient Disposition: ED Place in Observation Condition: Stable Clinical Impression: COPD exacerbation, Hypoxia, Acute hyponatremia, Dehydration Syncope Qualifiers: Syncope type: unspecified Qualified Code(s): R55 - Syncope and collapse Interventions: ED Admission Assessment Last Done: 10/16/24 17:47
[2024-10-16 10:53] LABS: ETOH - ETHANOL < 10.0 mg/dL; MAGNESIUM 1.6 mg/dL (1.7-2.3); PHOSPHORUS 2.7 mg/dL (2.5-5.0)
--- NOTE | 2024-10-16 11:05 | XRAY Report ---
PROCEDURE: XR Chest 1V INDICATIONS: syncope TECHNIQUE: One view of the chest was acquired. COMPARISON: CT chest without contrast 12/08/2023 FINDINGS: Surgical changes and devices: None. Lungs and pleura: No pleural effusions or pneumothorax. No consolidation. Mediastinum: Mediastinal contours appear normal. Heart size is normal. Bones and chest wall: No suspicious bony lesions. Overlying soft tissues appear unremarkable. IMPRESSION: No acute cardiopulmonary process. Reviewed by: James Huang MD on 10/16/2024 10:03 AM SOFYA Approved by: James Huang MD on 10/16/2024 10:03 AM SOFYA Station ID: [id number]
[2024-10-16 11:12] LABS: ALBUMIN 3.8 g/dL (3.2-5.5); ALBUMIN/GLOBULIN RATIO 1.1 (1.0-2.2); BILIRUBIN,TOTAL 1.1 mg/dL (0.2-1.0); CALCIUM 9.5 mg/dL (8.5-10.3); CREATININE 1.2 mg/dL (0.6-1.3); POTASSIUM 3.9 mmol/L (3.5-4.5); TOTAL PROTEIN 7.4 g/dL (6.4-8.9); TROPONIN I HIGH SENSITIVITY 14.7 ng/L (2.3-19.7)
[2024-10-16] MEDS: diphenhydrAMINE INJ 50 MG/ML VIAL IVP STA (11:21)
[2024-10-16] MEDS: methylPREDNISolone SUCCINATE 125 MG/2 ML VIAL IVP STA (11:22)
[2024-10-16 12:26] LABS: B. PARAPERTUSSIS- RESP PCR PAN NOT DETECTED; B. PERTUSSIS- RESP PCR PANEL NOT DETECTED; C. PNEUMONIAE- RESP PCR PANEL NOT DETECTED; CORONAVIRUS 229E-RESP PCR NOT DETECTED; CORONAVIRUS HKU1-RESP PCR NOT DETECTED; CORONAVIRUS NL63-RESP PCR NOT DETECTED; CORONAVIRUS OC43-RESP PCR NOT DETECTED; HUMAN METAPNEUMOVIRUS NOT DETECTED; INFLUENZA A- RESP PCR PANEL NOT DETECTED; INFLUENZA B - RESP PCR PANEL NOT DETECTED; M. PNEUMONIAE- RESP PCR PANEL NOT DETECTED; PARAINFLUENZA VIRUS 1 NOT DETECTED; PARAINFLUENZA VIRUS 2 NOT DETECTED; PARAINFLUENZA VIRUS 4 NOT DETECTED; RHINOVIRUS/ENTEROVIRUS NOT DETECTED; RSV- RESP PCR PANEL NOT DETECTED; SARS-CoV-2 -RESP PCR PANEL NOT DETECTED
[2024-10-16 12:55] LABS: AMPHETAMINE SCREEN,URINE NEGATIVE (NEGATIVE); BARBITURATE SCREEN,UR NEGATIVE (NEGATIVE); BENZODIAZEPINES SCREEN, URINE NEGATIVE (NEGATIVE); BUPRENORPHINE SCREEN, URINE NEGATIVE (NEGATIVE); COCAINE SCREEN URINE NEGATIVE (NEGATIVE); METHADONE SCREEN, URINE NEGATIVE (NEGATIVE); METHAMPHETAMINES SCREEN, URINE NEGATIVE (NEGATIVE); OPIATE SCREEN, URINE NEGATIVE (NEGATIVE); OXYCODONE SCREEN, URINE NEGATIVE (NEGATIVE); THC CANNABINOID SCREEN, URINE NEGATIVE (NEGATIVE); TRICYCLIC ANTIDEPRESSANT,URINE NEGATIVE (NEGATIVE)
[2024-10-16] MEDS ORDERED: iohexoL-300 100 ML VIAL ONE ×2 (13:01→15:58)
--- NOTE | 2024-10-16 13:47 | CT Report ---
PROCEDURE: CT Head WO INDICATIONS: syncope, h/o aneurysm TECHNIQUE: Noncontrast 4.5 mm thick angled axial sections acquired from the foramen magnum to the vertex. For r adiation dose reduction, the following was used: automated exposure control, adjustment of mA and/or kV according to patient size. COMPARISON: CT head without contrast 08/30/2023 FINDINGS: Image quality: Excellent. CSF spaces: Right parietal bone approach ventriculostomy catheter terminating in the left lateral ve ntricles. Basal cisterns are patent. No extra-axial fluid collections. Ventricles are normal in siz e and shape. Brain: Reidentified anterior cerebral artery aneurysm clip in the anterior cranial fossa (09/16). Mil d confluent periventricular hyperattenuation, likely secondary to chronic microvascular ischemic zavala ges. No midline shift. No intracranial masses or hemorrhage. Buck-white matter interface is normal. Skull and face: Status post prior frontal bone cranioplasty. Calvarium and visualized facial bones a re intact, without suspicious lesions. Sinuses: Partial opacification of the right mastoid air cells. Inspissated debris and mucosal thicken ing in the right maxillary sinus. IMPRESSION: 1.No acute intracranial abnormality. 2.Other chronic findings noted above. Reviewed by: James Huang MD on 10/16/2024 12:46 PM SOFYA Approved by: James Huang MD on 10/16/2024 12:46 PM SOFYA Station ID: [id number]
--- NOTE | 2024-10-16 13:56 | CT Report ---
PROCEDURE: CT Angio Chest INDICATIONS: syncope, tachycardia CONTRAST: 80 mL of Omnipaque 300 TECHNIQUE: After the administration of intravenous contrast, 2 mm axial images were acquired from the pulmonary apices to the posterior costophrenic angles during the arterial phase. In addition, 1 mm lung kernel and 5 mm soft tissue kernel reconstructions were performed. 3-dimensional coronal oblique maximum int ensity projection (MIP) reformats, 8 mm axial MIP, and 5 mm coronal and sagittal MPR reformats were t hen performed through the thorax. For radiation dose reduction, the following was used: automated exp osure control, adjustment of mA and/or kV according to patient size. COMPARISON: CT chest without contrast 12/08/2023 FINDINGS: Image quality: Excellent. Thyroid Gland: Within normal limits. Cardiac: Heart size within normal limits. No pericardial effusion. RV: LV ratio within normal limits. No bowing of the interventricular septum. Mild left anterior descending coronary artery calcificatio ns. Aorta: Thoracic aortic diameter within normal limits. Pulmonary Artery: Main pulmonary artery diameter within normal limits. No central filling defect in t he pulmonary arteries to the distal intralobar level. Further distal evaluation is limited due to sub optimal arterial opacification. Lungs: No focal lung consolidation. Reidentified right lower lobe subpleural ovoid nodules measuring up to 1 cm in maximum diameter (6/156), likely representing intrapulmonary lymph nodes. Mild upper lo be predominant paraseptal emphysema. Pleura: No pneumothorax or pleural effusion. Airways: The trachea and mainstem bronchi are patent. Lymph Nodes: No mediastinal, hilar, or axillary lymphadenopathy. Esophagus: Within normal limits. Bones: No acute osseous abnormality. Upper Abdomen: Within normal limits. Soft tissues: Partially identified left subscapularis 2.7 cm intramuscular lesion (4/18). Partially i dentified portions of the ventriculostomy catheter. IMPRESSION: 1.No CT evidence of pulmonary embolism to the distal intralobar level. 2.No other acute CT abnormality of the chest. If this patient has high risk factors such as a smoking history, continued screening via low-dose annual chest CT without contrast recommended. 3.Left subscapularis 2.7 cm intramuscular lesion, which may represent an intramuscular cyst, desmoid, among other etiologies. Nonemergent MRI shoulder without contrast could be performed for clarificati on. 4.Chronic findings noted above. Reviewed by: James Huang MD on 10/16/2024 12:55 PM AKCRISTIAN Approved by: James Huang MD on 10/16/2024 12:55 PM AKCRISTIAN Station ID: [id number]
[2024-10-16] MEDS: iohexoL-300 100 ML VIAL IVP ONE (13:59)
[2024-10-16] MEDS: NICOTINE 14 MG PATCH TOP STA (15:15)
[2024-10-16] MEDS: ALBUTEROL NEB 2.5 MG/3 ML INH STA (15:19)
--- NOTE | 2024-10-16 15:32 | HISTORY & PHYSICAL EXAMINATION ---
Chief Complaint Chief Complaint Chief Complaint: syncope History of Present Illness Admitted From Admitted From:: home History Obtained From Records Reviewed: primary care records History obtained from: Patient and spouse History of Present Illness HPI Comment/Other: 64-year-old male with a past medical history of hypothyroidism, hypertension, cerebral artery aneurysm, emphysema tobacco user and daily alcohol use presents to the emergency department with a syncopal episode. His states that she always hears him get up before her and she did hear him get up. Usually he goes and sits in a chair in the living room. When she got up after him she looked out towards the chair where he usually sits and noted that he was not there. She went to investigate further and found him face down behind the chair. He was unconscious and she called EMS immediately. He quickly woke up. He was disoriented after he fell. She does not think he had a seizure. He does not recall anything of the episode. He was confused when he woke up. no loss of bowel or bladder control at the time of the episode. He has had an upper respiratory infection for about 10 days and has been coughing. He has not been running any fevers he has had a normal appetite. He has a family history of aneurysms in his father sounds like iliac artery aneurysms as well as abdominal aortic aneurysm. He had a right anterior communicating artery aneurysm about 12 years ago. This was coiled, recurred and was then clipped. He also has a ventriculoperitoneal shunt in place. The shunts are MRI safe but need to be monitored and reset after MRIs. He has not been having any recent dyspnea on exertion, chest pain or paroxysmal nocturnal dyspnea. He denies any extremity swelling. He broke his ankle about a year and a half ago and has some chronic left ankle swelling but this is not out of the ordinary Other than the recent cold he has been feeling fairly well. Since he has been in the emergency department he has required supplemental oxygen. His oxygen saturation is in the 90s on 2 L however when it is turned to room air he is down between 87 and 89% on room air. He denies any history of sleep apnea. He is compliant with his medications. He sees his PCP Jackie Torres annually. When I initally discussed code status, the patient wanted DNR/DNI, however, his prevailed upon him that she would like him to be resusitated. She is his surrogate decision maker. They have been for 45 years. Meds/Allgy Home Medications Ambulatory Orders Medication Instructions Recorded Confirmed Knee Scooter 1 unit transdermal ONCE ##1 05/09/22 05/14/22 bupropion HCl 300 mg 24 hr tablet, 300 mg PO DAILY 05/09/22 10/16/24 extended release (Wellbutrin XL) hydrocodone 5 mg-acetaminophen 325 1 - 2 tab PO Q6H PRN Pain #15 tabs 05/09/22 10/16/24 mg tablet levothyroxine 125 mcg tablet 200 mcg PO QDAC 05/09/22 10/16/24 metoprolol tartrate 50 mg tablet 50 mg PO DAILY 05/09/22 10/16/24 oxycodone 5 mg tablet 5 mg PO Q4-6H PRN Pain #24 tabs 05/15/22 10/16/24 atorvastatin 80 mg tablet (Lipitor) 80 mg PO QPM 10/07/24 10/16/24 ibuprofen 200 mg tablet 200 mg PO DIRECTED PRN fever or 10/07/24 10/16/24 pain Allergies Allergies Allergy/AdvReac Type Severity Reaction Status Date / Time Iodinated Contrast Media Allergy Hives Verified 10/16/24 10:39 PFSH Active Problems All Active Problems (Updated 10/16/24 @ 16:44 by EZEKIEL Torres) Leukocytosis (Acute) Acute hypoxic respiratory failure (Acute) Daily consumption of alcohol (Acute) Dehydration (Acute) Acute hyponatremia (Acute) Hypoxia (Acute) Syncope (Acute) COPD exacerbation (Acute) History of high blood pressure (Acute) Lumbar disc disorder with myelopathy (Acute) Cerebral aneurysm, nonruptured (Acute) Hypothyroidism (Acute) ETOH abuse (Acute) Hx of low back pain (Acute) Impaired fasting glucose (Acute) Tobacco use disorder (Acute) Family history of abdominal aortic aneurysm (Acute) Smoker (Acute) Hyperlipidemia (Acute) Benign hypertension (Acute) Depression with anxiety (Acute) Multiple nodules of lung (Acute) Emphysema, unspecified (Acute) Screening for prostate cancer (Acute) Surgical History Surgical History S/P ventricular shunt placement Left cerebral Family History Family History (Updated 10/15/24 @ 09:09 by Makenzie Jaimes LPN) Father Substance abuse Grandfather Brain aneurysm Mother Thyroid disorder High blood pressure Colon cancer CAD (coronary artery disease) Social History Social History (Updated 10/16/24 @ 10:22 by Tim Cobian RN, BSN) Smoking Status: Current every day smoker How many cigarettes a day do you smoke? (20 cigarettes=1 Pk): 20 Do you dip or chew tobacco?: No Do you vape?: No Living arrangement: At home Marital Status: Living Condition: With spouse/s.o. Relationship: Physical Activity: Walking Level: Independent Do you feel safe in your home environment?: Yes Suffered physical, verbal, emotional, or financial abuse?: No History of Abuse: No ETOH Use: Beer Frequency: Daily Number of Amount/day: 6 Substance Use: denies use POLST Patient has POLST: No Review of Systems Status of ROS: 10 or more systems reviewed and unremarkable except as noted in history and below Constitutional Denies: Fatigue or Malaise Eyes Reports: Change in vision Ears, nose, mouth, and throat Reports: Tinnitus; Denies: Vertigo Cardiovascular Reports: Syncope; Denies: Irregular heart rate, chest pain, palpitations, edema, swelling of feet/ankles or Decreased exercise tolerance Respiratory Reports: Cough, Sputum production and Chest congestion; Denies: Wheezing, SOB at rest or SOB with exertion Gastrointestinal Denies: Abdominal pain Genitourinary Denies: Urinary frequency Musculoskeletal Denies: Extremity swelling Integumentary/Breast Denies: Rash Neurological Denies: Headache, Weakness in extremities, Numbness in extremities, Dizziness, Vertigo or Confusion Psychiatric Denies: Change in sleep pattern Endocrine Denies: Fatigue Allergic/Immunologic Denies: Wheezing Prior Level of Functionality: independent. drives, uses his chainsaw, disabled after anuerysm rupture 12 years ago Conclusion/Plan Problem List (1) Syncope: Plan: Syncopal episode this AM, likely without prodrome. denies history of seizures. He was on seizure medication for about 3 years after his episode with his aneurysm but has not been on medication since. He denies any palpitations or dyspnea on exertion. He does not have any focal neurologic symptoms on exam. His EKG shows sinus tachycardia. I will follow his heart rhythm on telemetry for 24 hours. I have requested that this patient receive a CTA of the head and neck while still in the emergency department to ensure there are no intracranial blood vessel abnormalities. This was negative. He is not a candidate for MRI at this institution due to his WATCH COMMANDER shunt. In discussion with Dr. Rowland have decided to admit the patient to observation status for workup of his syncope. I will place him on telemetry monitoring overnight. Echocardiography is not available for approximately 48 hours so he will likely discharge to home without echocardiogram completed and will complete this in the outpatient environment. Qualifiers: Syncope type: unspecified Qualified Code(s): R55 - Syncope and collapse (2) Acute hypoxic respiratory failure: Plan: He is not on home oxygen. He is a one half pack per day smoker since the age of 14. He gets annual low-dose CT scans and upper lobe emphysema has been noted on the scans. He also has several pulmonary nodules that are being followed. He is not on any daily medications for COPD. He does have a morning cough but aside from his recent upper respiratory infection has been doing fine with regards to his lung function and normal life. When he presented to the emergency department today his oxygen saturation was 88% on room air. I believe that his acute hypoxic respiratory failure secondary to his COPD exacerbation which is been brought on by this upper respiratory infection.His viral respiratory panel is negative. His CTA of the chest is negative for pneumonia.He does not have findings on CT which are consistent with congestive heart failure.I will treat his COPD exacerbation as below. (3) Acute hyponatremia: Plan: Patient presents with a sodium of 125. He is not on any diuretic therapy. He is on Wellbutrin which is an atypical antidepressant- Not typically associated with hyponatremia. Looking through his history it appears that he has not had labs drawn for a year when he had his sodium tested over a year ago was 132. He does not appear hypervolemic he appears euvolemic. He is a daily drinker states he drinks 4-5 beers a day. This hyponatremia could be due to beer potomania. I will place this patient on 1500 mL of free water restriction daily. He is currently receiving a saline bolus in the emergency department. I will recheck his sodium every 6 hours for [address] him on a regular diet so that he gets dietary sodium. (4) COPD exacerbation: Plan: Patient with a history of upper lobe emphysema and continues to smoke daily. He is not on any daily medications for COPD. I admitting him to the hospital for a COPD exacerbation likely secondary to viral upper respiratory infection which he has had for about 10 days. I will treat him with azithromycin for its anti-inflammatory processes, 500 mg daily x 3 days. I will give him steroids, he has received 125 mg of methylprednisolone in the emergency department IV actually for his contrast allergy but it will serve 2 purposes. continue w 40mg TID while here, or for 5 d total. I will give him albuterol Atrovent nebulizer treatments 4 times daily as needed for cough/wheeze/SOB (5) Hypothyroidism: Plan: I will continue his home Synthroid dosing of 200 mcg daily. (6) Tobacco use disorder: Plan: Half pack per day smoker times many many years. He has absolutely no interest in smoking cessation. He will receive a nicotine patch while he is admitted (7) Benign hypertension: Plan: At home he takes metoprolol succinate 50 mg daily at at bedtime. He did take this medication last night. He is hypertensive in the emergency department today. I will continue to observe his BP and treat for SBP >180 wtih PRN meds. (8) S/P ventricular shunt placement: Plan: These devices are MRI compatible, but must be reset after MRI. We do not have the equipment to reset WATCH COMMANDER shunts post MRI at this facility. I have informed patient of this and we will not be getting an MRI of his brain to evaluate his syncope. Will transfer if MRI becomes medically necessary. (9) Daily consumption of alcohol: Plan: He denies history of withdrawals, but cannot recall the last time that he has not had daily alcohol. Will order CIWA protocol. (10) Leukocytosis: Plan: of unclear etiology. Will repeat CBC in AM, likely due to stress reaction. WBC is 21.4. he does have a viral URI, he does not have any dysuria, or abdominal pain. Plan I have spent 80 minutes in the care of this patient today. This includes time [id number], review and ordering of diagnostic imaging and laboratory studies and consultation with other providers.. Monitoring the patient's signs symptoms, evaluation of medication effectiveness and patient's response to treatment. Lab Results Lab results reviewed: Yes 10/16/24 10:21 10/16/24 17:56 Core Measures Anticipated LOS I expect patient to be DC'd or transferred within 96 hours.: Yes Issues Hospital Issues and Management Plan: syncopal workup, treatment of acute hypoxic resp failure secondary to COPD DVT/VTE - Prophylaxis VTE/DVT Device ordered at admit?: Yes VTE/DVT Prophylaxis med ordered at admit?: Yes
[2024-10-16] MEDS ORDERED: iohexoL-300 100 ML VIAL IVP ONE (16:00)
--- NOTE | 2024-10-16 16:53 | CT Report ---
PROCEDURE: CT Angio Head/Neck INDICATIONS: h/o right DONNA aneurysm, syncopal event TECHNIQUE: After the administration of intravenous contrast, 1 mm thick sections acquired from the aortic arch t hrough the [place] of [place]. 3-dimensional cyvckor-thwyblhzz-awyunrhefj (MIP) and/or volume renderin g reformats were acquired of the central intracranial vasculature and neck separately. For radiation dose reduction, the following was used: automated exposure control, adjustment of mA and/or kV acco rding to patient size. CONTRAST: 80 mL Omnipaque 300 COMPARISON: CT head without contrast 10/16/2024 FINDINGS: Image quality: Diagnostic. HEAD CT: Please see the same day CT head without contrast report for further details. HEAD CT ANGIOGRAPHY: Anterior circulation: Intracranial internal carotid arteries are normal in size and flow. Status pos t coiling of a prior right anterior cerebral artery aneurysm without recurrence. The flow within the paired anterior cerebral arteries is normal and symmetric. The flow within the middle cerebral arter ies is normal and symmetric. The anterior communicating artery is seen. No aneurysms are seen. Posterior circulation: Visualized portions of the vertebral arteries demonstrate normal caliber, and join to form a normal appearing basilar artery. Flow within the posterior cerebral arteries is norm al and symmetric. No aneurysms are seen. NECK CT ANGIOGRAPHY: Carotid system: The great vessels demonstrate a conventional anatomy as they arise from the aortic a rch. The origins of the common carotid arteries appear patent. The common carotid arteries demonstr ate normal caliber and courses. The bifurcation regions are both widely patent. The internal caroti d arteries demonstrate normal calibers and courses. Posterior circulation: The origins of the vertebral arteries both appear widely patent. The more ludwig perior extracranial portions of both vertebral arteries also demonstrate normal courses and calibers. They join to form a normal appearing basilar artery. Soft tissues: Visualized neck soft tissues demonstrate no suspicious abnormalities. COMPUTER HARDWARE ENGINEER shunt coursi ng along the right side of the neck. Bones: No suspicious bony lesions. Visualized cervical spine appears normally aligned. IMPRESSION: 1.No large vessel occlusion, dissection, or aneurysm visualized arterial vasculature. 2.Status post prior right anterior cerebral artery aneurysm coiling without recurrence. The estimate of stenosis included in the report of the imaging study was calculated using the NASCET method Reviewed by: James Huang MD on 10/16/2024 3:52 PM AKDT Approved by: James Huang MD on 10/16/2024 3:52 PM SOFYA Station ID: [id number]
[2024-10-16] MEDS ORDERED: LABETALOL 20 MG/4 ML SYRINGE IVP PRN (17:24)
[2024-10-16] MEDS ORDERED: SODIUM CHLORIDE FLUSH 0.9% 10 ML SYRINGE IVP PRN (17:48)
[2024-10-16] MEDS ORDERED: ONDANSETRON 4 MG/2 ML VIAL IVP PRN (17:48)
[2024-10-16] MEDS ORDERED: LORazepam 1 MG TABLET PO PRN (17:48)
[2024-10-16] MEDS ORDERED: IPRATROPIUM/ALBUTEROL 3 ML NEB INH PRN (17:48)
[2024-10-16] MEDS ORDERED: ACETAMINOPHEN 325 MG TABLET PO PRN (17:48)
[2024-10-16] MEDS ORDERED: oxyCODONE 5 MG TABLET PO PRN (17:48)
[2024-10-16] MEDS: methylPREDNISolone SUCCINATE 40 MG/ML VIAL IVP SCH (18:47)
[2024-10-16] MEDS: AZITHROMYCIN INJ 500 MG in SODIUM CHLORIDE 0.9% 250 ML IV SCH (18:47)
[2024-10-16] MEDS: ATORVASTATIN 40 MG TABLET PO SCH (20:40)
[2024-10-16] MEDS: METOPROLOL TARTRATE 50 MG TABLET PO SCH (20:40)
[2024-10-17] MEDS: SODIUM CHLORIDE FLUSH 0.9% 10 ML SYRINGE IVP SCH (00:17)
[2024-10-17] MEDS: LEVOTHYROXINE 100 MCG TABLET PO SCH (06:17)
[2024-10-17] MEDS: methylPREDNISolone SUCCINATE 40 MG/ML VIAL IVP SCH (06:18)
[2024-10-17 06:20] LABS: BASOPHILS % (AUTO) 0.1 %; HCT - HEMATOCRIT 41.2 % (42.0-52.0); HGB - HEMOGLOBIN 14.1 g/dL (14.0-18.0); LYMPHOCYTES % (AUTO) 3.4 %; MEAN CORPUSCULAR HEMOGLOBIN 31.5 pg (27.0-31.0); MEAN CORPUSCULAR HGB CONC 34.2 g/dL (32.0-36.0); MEAN CORPUSCULAR VOLUME 92.2 fL (80.0-94.0); MEAN PLATELET VOLUME 9.1 fL (7.4-11.4); MONOCYTES # (AUTO) 1.1 10^3/uL (0.0-1.0); MONOCYTES % (AUTO) 3.9 %; NEUTROPHILS # (AUTO) 26.2 10^3/uL (1.5-6.6); NEUTROPHILS % (AUTO) 91.9 %; PLT - PLATELET COUNT 220 10^3/uL (130-450); RED BLOOD COUNT 4.47 10^6/uL (4.70-6.10); RED CELL DISTRIBUTION WIDTH 12.9 % (12.0-15.0); WHITE BLOOD COUNT 28.6 x10^3/uL (4.8-10.8)
[2024-10-17 06:40] LABS: CALCIUM 8.5 mg/dL (8.5-10.3); CREATININE 0.9 mg/dL (0.6-1.3)
[2024-10-17 06:48] LABS: DIFFERENTIAL COMMENT MANUAL=AUTO DIFF; PLATELET ESTIMATE, MANUAL NORMAL (130-450,000) (NORMAL); PLATELET MORPHOLOGY NORMAL APPEARANCE (NORMAL); RBC MORPHOLOGY (MULTIPLE) NORMAL APPEARANCE (NORMAL); WBC MORPHOLOGY (MULTIPLE) NORMAL APPEARANCE (NORMAL)
[2024-10-17] MEDS: buPROPion XL 150 MG TABLET PO SCH (08:49)
[2024-10-17] MEDS: NICOTINE 21 MG PATCH TOP SCH (08:49)
[2024-10-17] MEDS: ENOXAPARIN 40 MG/0.4 ML SYRINGE SUBQ SCH (08:49)
[2024-10-17 15:19] LABS: CALCIUM 8.6 mg/dL (8.5-10.3); POTASSIUM 4.1 mmol/L (3.5-4.5)
--- NOTE | 2024-10-17 15:27 | PROVIDER PROGRESS NOTE ---
Subjective Prog Note Date Prog Note Date: 10/17/24 Prog Note Time: 15:25 Subjective Pt reports feeling: Improved Subjective: Patient reports feeling improved, no further lightheadedness, or shortness of breath Current Medications Current Medications Current Medications: Current Medications Generic Name Dose Route Start Last Admin Trade Name Freq PRN Reason Stop Dose Admin Acetaminophen 650 mg 10/16/24 17:48 Acetaminophen 325 Mg Tablet PO Q4HR PRN Pain 1 to 4, or Fever Albuterol/Ipratropium 3 ml 10/16/24 17:48 Ipratropium/Albuterol 3 Ml Neb INH QID PRN Cough Atorvastatin Calcium 80 mg 10/16/24 21:00 10/16/24 20:40 Atorvastatin 40 Mg Tablet PO 80 mg QPM SVETA Administration Bupropion HCl 300 mg 10/17/24 09:00 10/17/24 08:49 Bupropion Xl 150 Mg Tablet PO 300 mg DAILY SVETA Administration Enoxaparin Sodium 40 mg 10/17/24 09:00 10/17/24 08:49 Enoxaparin 40 Mg/0.4 Ml Syringe SUBQ 40 mg DAILY SVETA Administration Azithromycin 500 mg/ Sodium 250 mls @ 250 mls/hr 10/16/24 17:24 10/17/24 13:28 Chloride IV 10/18/24 09:59 Infused DAILY SVETA Infusion Labetalol HCl 20 mg 10/16/24 17:24 Labetalol 20 Mg/4 Ml Syringe IVP Q4H PRN SBP> or= 160 OR DBP> or= 110 Levothyroxine Sodium 200 mcg 10/17/24 07:00 10/17/24 06:17 Levothyroxine 100 Mcg Tablet PO 200 mcg QDAC SVETA Administration Lorazepam 1 mg 10/16/24 17:48 Lorazepam 1 Mg Tablet PO Q1H PRN CIWA > 8 Protocol Methylprednisolone 40 mg 10/17/24 06:00 10/17/24 13:46 Methylprednisolone Succinate 40 Mg/Ml Vial IVP 10/21/24 14:01 40 mg TID SVETA Administration Metoprolol Tartrate 50 mg 10/16/24 21:00 10/17/24 08:49 Metoprolol Tartrate 50 Mg Tablet PO 50 mg BID SVETA Administration Nicotine 1 patch 10/17/24 09:00 10/17/24 08:49 Nicotine 21 Mg Patch TOP 1 patch DAILY SVETA Administration Ondansetron HCl 4 mg 10/16/24 17:48 Ondansetron 4 Mg/2 Ml Vial IVP Q6HR PRN Nausea / Vomiting Oxycodone HCl 5 mg 10/16/24 17:48 Oxycodone 5 Mg Tablet PO Q4HR PRN Pain 5 to 7 Sodium Chloride 10 ml 10/17/24 01:00 10/17/24 08:49 Sodium Chloride Flush 0.9% 10 Ml Syringe IVP 10 ml 0100,0900,1700 SVETA Administration Sodium Chloride 10 ml 10/16/24 17:48 Sodium Chloride Flush 0.9% 10 Ml Syringe IVP PRN PRN NEEDED PER PROVIDER ORDERS Objective Vital Signs/Intake & Output Reviewed Vital Signs: Yes Vital Signs: Vital Signs x48h Temp Pulse Pulse Resp BP BP Pulse Ox 10/17/24 12:49 36.5 C 69 16 124/71 92 10/17/24 09:35 10/17/24 08:49 90 127/72 10/17/24 07:48 36.9 C 65 16 127/72 91 L O2 Flow Rate 10/17/24 12:49 10/17/24 09:35 1 10/17/24 08:49 10/17/24 07:48 1 Intake & Output: Intake & Output 10/14/24 10/15/24 10/16/24 10/17/24 23:59 23:59 23:59 23:59 Intake Total 2500 / 2500 1110 / 1110 Output Total 400 / 400 375 / 375 Balance 2100 / 2100 735 / 735 Weight (kg) 97 kg Objective General Appearance: positive No acute distress and Alert Eyes Bilateral: positive Normal inspection Neck: positive Nml inspection Respiratory: positive No respiratory distress and Breath sounds nml; negative Wheezes Cardiovascular: positive Regular rate & rhythm, No murmur and No gallop Abdomen: positive Non-tender, No organomegaly, Nml bowel sounds and No distention Skin: positive Color nml Extremities: positive Non-tender, Nml appearance and No pedal edema Neurologic/Psychiatric: positive Oriented x3, CN's nml (2-12) and Mood/affect nml Lab Results 10/17/24 05:41 10/17/24 14:59 Other Labs: Lab Results x24hrs 03/23/25 03/23/25 03/23/25 Range/Units 14:59 05:41 00:30 WBC 28.6 H (4.8-10.8) x10^3/uL RBC 4.47 L (4.70-6.10) 10^6/uL Hgb 14.1 (14.0-18.0) g/dL Hct 41.2 L (42.0-52.0) % MCV 92.2 (80.0-94.0) fL MCH 31.5 H (27.0-31.0) pg MCHC 34.2 (32.0-36.0) g/dL RDW 12.9 (12.0-15.0) % Plt Count 220 (130-450) 10^3/uL MPV 9.1 (7.4-11.4) fL Neut # (Auto) 26.2 H (1.5-6.6) 10^3/uL Lymph # (Auto) 1.0 L (1.5-3.5) 10^3/uL Andrews # (Auto) 1.1 H (0.0-1.0) 10^3/uL Eos # (Auto) 0.0 (0.0-0.7) 10^3/uL Baso # (Auto) 0.0 (0.0-0.1) 10^3/uL Absolute Nucleated RBC 0.00 x10^3/uL Band Neuts % (Manual) Not Reportable Abnorm Lymph % (Manual) Not Reportable Nucleated RBC % 0.0 /100WBC Neutrophils # (Manual) Not Reportable Lymphocytes # (Manual) Not Reportable Monocytes # (Manual) Not Reportable Eosinophils # (Manual) Not Reportable Basophils # (Manual) Not Reportable Differential Comment MANUAL=AUTO DIFF WBC Morphology NORMAL APPEARANCE (NORMAL) Platelet Estimate NORMAL (130-450,000) (NORMAL) Platelet Morphology NORMAL APPEARANCE (NORMAL) RBC Morph Micro Appear NORMAL APPEARANCE (NORMAL) Sodium 130 L 129 L 129 L (135-145) mmol/L Potassium 4.1 4.0 (3.5-4.5) mmol/L Chloride 102 102 (101-111) mmol/L Carbon Dioxide 22 22 (21-32) mmol/L Anion Gap 6.0 5.0 L (6-13) BUN 18 14 (6-20) mg/dL Creatinine 1.0 0.9 (0.6-1.3) mg/dL Estimated GFR (MDRD) 75 L 85 L (>89) Glucose 155 H 160 H (74-104) mg/dL Calcium 8.6 8.5 (8.5-10.3) mg/dL 10/16/24 Range/Units 17:56 WBC (4.8-10.8) x10^3/uL RBC (4.70-6.10) 10^6/uL Hgb (14.0-18.0) g/dL Hct (42.0-52.0) % MCV (80.0-94.0) fL MCH (27.0-31.0) pg MCHC (32.0-36.0) g/dL RDW (12.0-15.0) % Plt Count (130-450) 10^3/uL MPV (7.4-11.4) fL Neut # (Auto) (1.5-6.6) 10^3/uL Lymph # (Auto) (1.5-3.5) 10^3/uL Andrews # (Auto) (0.0-1.0) 10^3/uL Eos # (Auto) (0.0-0.7) 10^3/uL Baso # (Auto) (0.0-0.1) 10^3/uL Absolute Nucleated RBC x10^3/uL Band Neuts % (Manual) Abnorm Lymph % (Manual) Nucleated RBC % /100WBC Neutrophils # (Manual) Lymphocytes # (Manual) Monocytes # (Manual) Eosinophils # (Manual) Basophils # (Manual) Differential Comment WBC Morphology (NORMAL) Platelet Estimate (NORMAL) Platelet Morphology (NORMAL) RBC Morph Micro Appear (NORMAL) Sodium 126 L (135-145) mmol/L Potassium (3.5-4.5) mmol/L Chloride (101-111) mmol/L Carbon Dioxide (21-32) mmol/L Anion Gap (6-13) BUN (6-20) mg/dL Creatinine (0.6-1.3) mg/dL Estimated GFR (MDRD) (>89) Glucose (74-104) mg/dL Calcium (8.5-10.3) mg/dL Diagnostic Imaging Diagnostic Imaging Results: positive Final report reviewed Assessment/Plan Problem List (1) Syncope: Impression: * Etiology of syncopal event is unknown * Per patient's , she describes an approximately 20 to 30-minute window of what sounds like it could be a postictal period * Given his history of subarachnoid hemorrhage and aneurysm, potential sequela of TBI cannot be completely excluded * I did contact [facility] Neurosurgery on-call to request some recommendations, And it was felt that the patient was not likely experiencing sequela of his previous TBI/exam complication however it was recommended that he schedule a follow-up and a courtesy call will be made to the patient after discharge for them to schedule an appointment to be seen again * In the interim it was not felt that an imminent MRI or EEG would be required although at some point this could be arranged in the outpatient setting * Otherwise given the patient's syncope an echocardiogram would be appropriate given the patient's advanced age and other comorbidities so we will keep the patient until tomorrow at which time he can have an echocardiogram and likely can discharge tomorrow pending clinical course Qualifiers: Syncope type: unspecified Qualified Code(s): R55 - Syncope and collapse (2) Acute hypoxic respiratory failure: Impression: * This is improved and he is now on room air at rest and we are performing an oxygen desaturation screen (3) Acute hyponatremia: Impression: * Sodium improved to 130, continue to monitor (4) COPD exacerbation: Impression: * As above, Room air, continue oxygen desaturation screening (5) Hypothyroidism: Impression: * Stable, continue home levothyroxine (6) Tobacco use disorder: Impression: * Cessation counseling provided * Continue nicotine patch (7) Benign hypertension: Impression: * Relatively well-controlled, continue home meds (8) S/P ventricular shunt placement: Impression: * As above, spoke with neurosurgery at [facility] and patient will be notified for a follow-up appointment (9) Daily consumption of alcohol: Impression: * Counseled on alcohol reduction or cessation (10) Leukocytosis: Impression: * Chest CT shows no evidence of pneumonia * WBC increased to 28 likely secondary to steroids, continue to trend and evaluate for evidence of infection
[2024-10-18 05:29] LABS: BASOPHILS # (AUTO) 0.1 10^3/uL (0.0-0.1); BASOPHILS % (AUTO) 0.2 %; HCT - HEMATOCRIT 42.1 % (42.0-52.0); HGB - HEMOGLOBIN 14.3 g/dL (14.0-18.0); LYMPHOCYTES # (AUTO) 1.2 10^3/uL (1.5-3.5); LYMPHOCYTES % (AUTO) 3.8 %; MEAN CORPUSCULAR HEMOGLOBIN 31.8 pg (27.0-31.0); MEAN CORPUSCULAR VOLUME 93.6 fL (80.0-94.0); MEAN PLATELET VOLUME 8.9 fL (7.4-11.4); MONOCYTES # (AUTO) 0.8 10^3/uL (0.0-1.0); MONOCYTES % (AUTO) 2.7 %; NEUTROPHILS # (AUTO) 28.2 10^3/uL (1.5-6.6); NEUTROPHILS % (AUTO) 92.2 %; PLT - PLATELET COUNT 254 10^3/uL (130-450); WHITE BLOOD COUNT 30.6 x10^3/uL (4.8-10.8)
[2024-10-18 05:45] LABS: CALCIUM 8.7 mg/dL (8.5-10.3); POTASSIUM 3.8 mmol/L (3.5-4.5)
[2024-10-18 06:19] LABS: RBC MORPHOLOGY (MULTIPLE) NORMAL APPEARANCE (NORMAL)
[2024-10-18 06:20] LABS: DIFFERENTIAL COMMENT MANUAL=AUTO DIFF; PLATELET ESTIMATE, MANUAL NORMAL (130-450,000) (NORMAL); PLATELET MORPHOLOGY NORMAL APPEARANCE (NORMAL); WBC MORPHOLOGY (MULTIPLE) NORMAL APPEARANCE (NORMAL)
[2024-10-18 11:57] LABS: BILIRUBIN,URINE NEGATIVE (NEGATIVE); GLUCOSE, URINE (UA) NEGATIVE (NEGATIVE); KETONES,URINE (UA) NEGATIVE (NEGATIVE); LEUKOCYTE ESTERASE, URINE NEGATIVE (NEGATIVE); NITRITE,URINE NEGATIVE (NEGATIVE); OCCULT BLOOD,URINE NEGATIVE (NEGATIVE); PROTEIN,URINE NEGATIVE (NEGATIVE); UROBILINOGEN,URINE 1 (NORMAL) E.U./dL (NORMAL)
[2024-10-18 12:00] LABS: CLARITY,URINE CLEAR (CLEAR)
--- NOTE | 2024-10-18 12:08 | PHARMACY PROGRESS NOTE ---
Best Possible Medication History Admit Date and Time: 10/17/24 1523 Home Medications Medication Instructions Recorded Confirmed Type Knee Scooter 1 unit transdermal ONCE ##1 05/09/22 05/14/22 Rx bupropion HCl 300 mg 24 hr tablet, 300 mg PO DAILY 05/09/22 10/16/24 History extended release (Wellbutrin XL) metoprolol tartrate 50 mg tablet 50 mg PO DAILY 05/09/22 10/16/24 History atorvastatin 80 mg tablet (Lipitor) 80 mg PO QPM 10/07/24 10/16/24 History ibuprofen 200 mg tablet 200 mg PO DIRECTED PRN fever or 10/07/24 10/16/24 History pain levothyroxine 200 mcg tablet 200 mcg PO ONCE 10/18/24 10/18/24 History metoprolol succinate 50 mg 50 mg PO ONCE 10/18/24 10/18/24 History tablet,extended release 24 hr Medications reviewed in ED?: No Medication History completed: Yes Patient Interview: Completed Secondary Source(s): Other family member and Insurance records [facility] Statement: Patient interview with pharmacist, with family member present, and [facility]. As the person ultimately responsible for medication therapy, providers are able to order a medication from an existing home medication list in [facility] via the "Reconcile Routine" prior to Confirmation of that medication by bioinformatics support specialist. Such practice is discouraged except when the physician, in their clinical judgment, deems that a medical need exists for a medication without regard to previous use.
[2024-10-18 12:11] VITALS: TEMP 97.9
[2024-10-18 12:17] LABS: BACTERIA,URINE Moderate /HPF (None Seen); RBC,URINE 0-5 /HPF (0-5); SQUAMOUS EPITHELIAL CELL,UR FEW Squamous (<= Few); WBC,URINE 0-3 /HPF (0-3)
--- NOTE | 2024-10-18 16:07 | Discharge Summary ---
"Discharge Summary Admit Date: 10/16/24 Discharge Date: 10/18/24 Discharging Provider: Dr Vadim Peng MD DIAGNOSES Admission Diagnoses: Syncope Acute hypoxic respiratory failure Acute hyponatremia COPD exacerbation Hypothyroidism Tobacco use disorder Status post ventricular shunt placement Daily consumption of alcohol Leukocytosis Discharge Diagnoses with Status of Each Condition: Syncope - Resolved Acute hypoxic respiratory failure - Resolved Acute hyponatremia - Improved Emphysema - Stable COPD exacerbation - Resolved Hypothyroidism - Stable Tobacco use disorder - Stable Status post ventricular shunt placement - Stable Daily consumption of alcohol - Stable Leukocytosis - Stable HPI History of Present Illness: 64-year-old male with a past medical history of hypothyroidism, hypertension, cerebral artery aneurysm, emphysema tobacco user and daily alcohol use presents to the emergency department with a syncopal episode. His states that she always hears him get up before her and she did hear him get up. Usually he goes and sits in a chair in the living room. When she got up after him she looked out towards the chair where he usually sits and noted that he was not there. She went to investigate further and found him face down behind the chair. He was unconscious and she called EMS immediately. He quickly woke up. He was disoriented after he fell. She does not think he had a seizure. He does not recall anything of the episode. He was confused when he woke up. no loss of bowel or bladder control at the time of the episode. He has had an upper respiratory infection for about 10 days and has been coughing. He has not been running any fevers he has had a normal appetite. He has a family history of aneurysms in his father sounds like iliac artery aneurysms as well as abdominal aortic aneurysm. He had a right anterior communicating artery aneurysm about 12 years ago. This was coiled, recurred and was then clipped. He also has a ventriculoperitoneal shunt in place. The shunts are MRI safe but need to be monitored and reset after MRIs. He has not been having any recent dyspnea on exertion, chest pain or paroxysmal nocturnal dyspnea. He denies any extremity swelling. He broke his ankle about a year and a half ago and has some chronic left ankle swelling but this is not out of the ordinary Other than the recent cold he has been feeling fairly well. Since he has been in the emergency department he has required supplemental oxygen. His oxygen saturation is in the 90s on 2 L however when it is turned to room air he is down between 87 and 89% on room air. He denies any history of sleep apnea. He is compliant with his medications. He sees his PCP Jackie Torres annually. When I initally discussed code status, the patient wanted DNR/DNI, however, his prevailed upon him that she would like him to be resusitated. She is his surrogate decision maker. They have been for 45 years. CONSULTS | PROCEDURES Procedures: Echocardiogramresults pending Oxygen desaturation screeningno oxygen indicated HOSPITAL COURSE Hospital Course: Patient was admitted for overnight observation and by the following morning he was feeling much better and essentially back at baseline. He was able to quickly wean off oxygen and was evaluated for hypoxemia, and a desaturation screen confirmed that he was able to maintain saturation on room air both at rest and with ambulation. 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 I was told by the neurosurgeon on-call that he would have his staff call the patient to arrange a follow-up appointment but the patient was also notified to please call them if he does not hear back so that a new appointment could be arranged. In addition, an echocardiogram was ordered, but results were not available at the time of discharge and the patient was doing very well and very eager to go home so he was not kept overnight for result follow-up. He was advised to discuss with his PCP for assistance in getting the results to review. We also discussed a few other issues such as his new diagnosis of emphysema but given his lack of hypoxia no specific treatment was started at this time. In addition, he had very brief episodes of bradycardia with heart rates in the 40s overnight, which is not likely of significant clinical relevance however this prompted further conversations about his sleep patterns and nighttime wakening which strongly suggest the possibility of obstructive sleep apnea and I have recommended that he discuss this with his PCP to evaluate his appropriateness for an outpatient sleep study at some point. ALLERGIES Allergies Allergy/AdvReac Type Severity Reaction Status Date / Time Iodinated Contrast Media Allergy Hives Verified 10/16/24 10:39 MEDICATIONS Ambulatory Orders Medication Instructions Recorded Confirmed Knee Scooter 1 unit transdermal ONCE ##1 05/09/22 05/14/22 bupropion HCl 300 mg 24 hr tablet, 300 mg PO DAILY 05/09/22 10/16/24 extended release (Wellbutrin XL) atorvastatin 80 mg tablet (Lipitor) 80 mg PO QPM 10/07/24 10/16/24 ibuprofen 200 mg tablet 200 mg PO DIRECTED PRN fever or 10/07/24 10/16/24 pain levothyroxine 200 mcg tablet 200 mcg PO ONCE 10/18/24 10/18/24 metoprolol succinate 50 mg 50 mg PO ONCE 10/18/24 10/18/24 tablet,extended release 24 hr PHYSICAL EXAM AT DISCHARGE General Appearance: positive No acute distress and Alert Respiratory: positive No respiratory distress and Breath sounds nml; negative Wheezes Cardiovascular: positive Regular rate & rhythm, No murmur and No gallop Abdomen: positive Non-tender, No organomegaly, Nml bowel sounds and No distention Skin: positive Color nml Extremities: positive Nml appearance Neurologic/Psychiatric: positive Oriented x3, CN's nml (2-12) and Motor nml LABS 10/18/24 05:12 10/18/24 05:12 DIAGNOSTIC IMAGING Diagnostic Imaging Results: Final report reviewed FOLLOW UP Follow Up: Follow-up with PCP Consider cardiology referral for outpatient telemetry monitoring i.e. Zio patch Follow-up with neurosurgery at [facility] Follow-up results of echocardiogram TIME SPENT Time Spent in Discharge (Minutes): 62 Discharge Plan Discharge Patient Disposition: Home, Self Care Condition: Stable Medically Cleared Date:: 10/18/24 Prescriptions: Continued atorvastatin [Lipitor] 80 mg tablet 80 mg PO QPM ibuprofen 200 mg tablet 200 mg PO DIRECTED PRN (Reason: fever or pain) bupropion HCl [Wellbutrin XL] 300 MG tablet extended release 24 hr 300 mg PO DAILY Patient Comments: Take 1 tablet by mouth twice a day Knee Scooter 1 unit transdermal ONCE Qty: 1 0RF Rx Instructions: Knee scooter, #1, use as directed. . LOS 10 weeks. Diagnosis S82. 892A metoprolol succinate 50 mg tablet extended release 24 hr 50 mg PO ONCE levothyroxine 200 mcg tablet 200 mcg PO ONCE Discontinued metoprolol tartrate 50 MG tablet 50 mg PO DAILY Patient Comments: take 1 tablet by mouth every NIGHT for high blood pressure Activity Restrictions: Additional Comments Activity Restrictions/Additional Instructions: Please avoid driving or operating heavy or dangerous equipment until you have had a complete evaluation of this event of passing out. Diet: Regular Health Concerns: Passing outotherwise known as syncope * Due to your being taken to the emergency room because of passing out, we have inquired about several possible causes. 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 * Because of this concern, I have called the [facility] neurosurgery team and they have notified me that they will reach out to you to schedule an appointment. If you do not hear from them this week, please call them and let them know of your hospital stay here, and see if they can schedule a follow-up for you Low oxygen level * When you first came to the hospital your oxygen level was low.Since improved and is now essentially normal but the evaluation we did because of this initial low oxygen showed us that you have evidence of emphysema on your CAT scan * Please share this with your primary care physician so that they are aware and they can decide whether or not you might benefit from inhalers in the future Slow heart rate in the 40s while sleeping * As we discussed, your heart rate dipping into the 40s overnight is not in and of itself terribly alarming however it does bring to the forefront the possibility that an abnormal heart rate or rhythm may have contributed to why you passed out * It also brings to mind some concerns that you may have undiagnosed sleep apnea * I would suggest that you talk to your primary care physician about sleep apnea and see if they can screen you for this and help you arrange a sleep study if appropriate * He also might want to see a grain farmworker so they can order heart monitoring to see if you are occasionally having slow heart rates or other abnormal heart rhythms that may have contributed to your passing out Print Language: Bulgarian Patient Instructions: Syncope, Syncope Causes, Emphysema Dc Stand Alone Forms: PCP List Follow-up Care: Kristina Torres ARNP [Primary Care Provider] -"
[2024-10-18 16:45] VITALS: BP 160/94; O2SAT 94
== END 2024-10-18 16:45 | disposition home or self-care (01) | DRG 312 ==
LOC: MS2 10:08 → ED 10:08 → MS2 17:48
PROVIDERS: ADMIT Physician Assistant Medical; ATTEND Physician Assistant Medical
DX: J44.1 Chronic obstructive pulmonary disease with (acute) exacerbation; I10 Essential (primary) hypertension; B97.89 Other viral agents as the cause of diseases classified elsewhere; D72.829 Elevated white blood cell count, unspecified; F32.A Depression, unspecified; Z20.818 Contact with and (suspected) exposure to other bacterial communicable diseases; J96.01 Acute respiratory failure with hypoxia; J43.9 Emphysema, unspecified; Z98.2 Presence of cerebrospinal fluid drainage device; J06.9 Acute upper respiratory infection, unspecified; E03.9 Hypothyroidism, unspecified; R00.0 Tachycardia, unspecified; Z79.890 Hormone replacement therapy; Z20.828 Contact with and (suspected) exposure to other viral communicable diseases; F17.210 Nicotine dependence, cigarettes, uncomplicated; Z79.899 Other long term (current) drug therapy; Z20.822 Contact with and (suspected) exposure to COVID-19; E87.1 Hypo-osmolality and hyponatremia; E86.0 Dehydration; Z91.81 History of falling; R55 Syncope and collapse